=== PATIENT | male | born 1960 | race Caucasian/White ===

== ENCOUNTER 2017-01-08 11:06 | Emergency (ER) | payer OTHER, MEDICAID ==
[~2017-01-08] VITALS: Ht 182.9 cm; Wt 154.2 kg
[2017-01-08] MEDS ORDERED: LATA5OPD OU (11:16)
[2017-01-08] MEDS ORDERED: LISINOPRIL-HCTZ PO (11:16)
[2017-01-08] MEDS ORDERED: LIDOCAINE 1% MDV 20ML VIAL SC ONE (12:45)
[2017-01-08] MEDS ORDERED: ADACEL/BOOSTRIX VACCINE (DIPHTH/PERTUSS/ACELL/TETANUS)0.5ML SYR (90715) IM ONE (12:45)
[2017-01-08 13:35] VITALS: BP 195/82
== END 2017-01-08 13:43 | disposition home or self-care (01) ==
LOC: M ED 12:29
DX: S61.012A Laceration without foreign body of left thumb without damage to nail, initial encounter (principal); W31.89XA Contact with other specified machinery, initial encounter; Y92.89 Other specified places as the place of occurrence of the external cause; Y93.89 Activity, other specified; Y99.0 Civilian activity done for income or pay; I10 Essential (primary) hypertension; Z79.899 Other long term (current) drug therapy

== ENCOUNTER 2017-01-17 11:23 | Emergency (ER) | payer OTHER, MEDICAID ==
[~2017-01-17] VITALS: Ht 182.9 cm; Wt 154.2 kg
[~2017-01-17 11:23] MED LIST: LATA5OPD OU; LISINOPRIL-HCTZ PO
[2017-01-17 11:24] VITALS: BP 169/86
[2017-01-17] MEDS ORDERED: ALEV220C2 PO (11:30)
[2017-01-17] MEDS ORDERED: GLUC1CAP9 PO (11:30)
== END 2017-01-17 12:09 | disposition home or self-care (01) ==
LOC: M ED 11:41
DX: Z48.02 Encounter for removal of sutures (principal); Z79.899 Other long term (current) drug therapy

== ENCOUNTER 2017-08-28 11:01 | Emergency (ER) | payer OTHER, MEDICAID | END 2017-08-28 11:42 | disposition home or self-care (01) | LOC: M ED 11:01 | DX: M54.5 Low back pain (principal); I10 Essential (primary) hypertension; H47.399 Other disorders of optic disc, unspecified eye; Z79.899 Other long term (current) drug therapy | CPT/HCPCS: 99282 ==

== ENCOUNTER 2018-04-11 17:41 | Emergency (ER) | payer OTHER ==
[2018-04-11 18:08] LABS: BASO % 0.3 % (0.0-1.0); EOS # 0.3 10^3/uL (0.0-0.50); EOS % 1.8 % (0.0-3.0); HEMATOCRIT 44.7 % (42.0-52.0); HEMOGLOBIN 14.7 g/dl (13.5-17.5); IMMATURE GRANULOCYTE % 0.5 % (0-3.0); LYMPH # 1.4 10^3/uL (1.5-4.5); LYMPH % 9.9 % (24.0-44.0); MEAN CORPUSCULAR HEMOGLOBIN 28.9 pg (27.0-33.0); MEAN CORPUSCULAR HGB CONC 32.9 g/dl (32.0-36.5); MONO # 1.5 10^3/uL (0.0-0.8); MONO % 10.8 % (0.0-5.0); NEUTROPHILS # 10.9 10^3/uL (1.8-7.7); NEUTROPHILS % 76.7 % (36.0-66.0); PLATELET COUNT, AUTOMATED 259 10^3/uL (150-450); RED BLOOD COUNT 5.08 10^6/uL (4.30-6.10); RED CELL DISTRIBUTION WIDTH 12.9 % (11.5-14.5); WHITE BLOOD COUNT 14.2 10^3/uL (4.0-10.0)
[2018-04-11] MEDS: HYDROMORPHONE HCL 0.5 MG/ 0.5 ML SYRINGE (J1170 PER 1) IV (18:16)
[2018-04-11 18:30] LABS: INR 1.23; PROTHROMBIN TIME 15.7 SECONDS (12.1-14.4)
[2018-04-11 18:32] LABS: D-DIMER QUANT 2837.4 ng/ml (<500)
[2018-04-11 18:38] LABS: ALKALINE PHOSPHATASE 104 U/L (45-117); ALT/SGPT 25 U/L (12-78); ANION GAP 7 MEQ/L (8-16); AST/SGOT 15 U/L (7-37); BILIRUBIN,DIRECT 0.1 MG/DL (0.0-0.2); BILIRUBIN,TOTAL 0.6 MG/DL (0.2-1.0); BLOOD UREA NITROGEN 24 MG/DL (7-18); CALCIUM LEVEL 8.9 MG/DL (8.5-10.1); CARBON DIOXIDE LEVEL 30 MEQ/L (21-32); CHLORIDE LEVEL 100 MEQ/L (98-107); CPK CREATINE PHOSPHOKINASE 115 U/L (39-308); CREATININE FOR GFR 1.21 MG/DL (0.70-1.30); GLOMERULAR FILTRATION RATE > 60.0 (>56); GLUCOSE, FASTING 116 MG/DL (70-100); POTASSIUM SERUM 4.5 MEQ/L (3.5-5.1); SODIUM LEVEL 137 MEQ/L (136-145); TROPONIN I < 0.02 NG/ML (< 0.10)
[2018-04-11 18:43] LABS: MB/CK RELATIVE INDEX 0.86 (< OR =4); NT-PRO BNP 51 PG/ML (<125)
[2018-04-11] MEDS ORDERED: ISOVUE-370 76% 100ML VIAL (Q9967) As Ordered (19:34)
[2018-04-11] MEDS: PERCOCET 5MG/325MG TAB PO (20:28)
[2018-04-11] MEDS: DOXYCYCLINE HYCLATE 100 MG TAB PO (22:15)
[2018-04-11] MEDS: APIXABAN 5 MG TAB (ELIQUIS) PO (22:15)
[2018-04-11] MEDS: OXYCODONE/APAP 5MG/325MG(BULK FOR ED) 1 TABLET PO (22:15)
== END 2018-04-11 22:38 | disposition home or self-care (01) ==
LOC: M ED 17:41
DX: I26.99 Other pulmonary embolism without acute cor pulmonale (principal); I10 Essential (primary) hypertension
CPT/HCPCS: Q9967

== ENCOUNTER 2018-04-20 10:55 | Inpatient (IN) | payer OTHER ==
[2018-04-20 11:45] LABS: BASO # 0.1 10^3/uL (0.0-0.2); BASO % 0.5 % (0.0-1.0); EOS # 0.5 10^3/uL (0.0-0.50); HEMATOCRIT 38.5 % (42.0-52.0); HEMOGLOBIN 12.7 g/dl (13.5-17.5); IMMATURE GRANULOCYTE % 1.5 % (0-3.0); LYMPH # 1.1 10^3/uL (1.5-4.5); LYMPH % 11.5 % (24.0-44.0); MEAN CORPUSCULAR VOLUME 84.8 fl (80.0-96.0); MONO # 0.7 10^3/uL (0.0-0.8); MONO % 7.4 % (0.0-5.0); NEUTROPHILS % 74.1 % (36.0-66.0); PLATELET COUNT, AUTOMATED 351 10^3/uL (150-450); RED BLOOD COUNT 4.54 10^6/uL (4.30-6.10); RED CELL DISTRIBUTION WIDTH 12.5 % (11.5-14.5); WHITE BLOOD COUNT 9.4 10^3/uL (4.0-10.0)
[2018-04-20 12:12] LABS: ALBUMIN/GLOBULIN RATIO 0.75 (1.00-1.93); ALKALINE PHOSPHATASE 93 U/L (45-117); ALT/SGPT 54 U/L (12-78); ANION GAP 9 MEQ/L (8-16); AST/SGOT 24 U/L (7-37); BILIRUBIN,DIRECT < 0.1 MG/DL (0.0-0.2); BILIRUBIN,TOTAL 0.2 MG/DL (0.2-1.0); BLOOD UREA NITROGEN 20 MG/DL (7-18); CALCIUM LEVEL 8.5 MG/DL (8.5-10.1); CARBON DIOXIDE LEVEL 28 MEQ/L (21-32); CHLORIDE LEVEL 105 MEQ/L (98-107); CPK CREATINE PHOSPHOKINASE 115 U/L (39-308); CREATININE FOR GFR 0.94 MG/DL (0.70-1.30); GLOMERULAR FILTRATION RATE > 60.0 (>56); GLUCOSE, FASTING 110 MG/DL (70-100); POTASSIUM SERUM 3.8 MEQ/L (3.5-5.1); SODIUM LEVEL 142 MEQ/L (136-145); TROPONIN I < 0.02 NG/ML (< 0.10)
[2018-04-20 12:17] LABS: CK-MB VALUE MASS 1.5 NG/ML (<3.6); NT-PRO BNP 600 PG/ML (<125)
[2018-04-20] MEDS ORDERED: ISOVUE-370 76% 100ML VIAL (Q9967) As Ordered (12:30)
[2018-04-20 14:07] LABS: LACTIC ACID SEPSIS PROTOCOL 1.4 MMOL/L (0.4-2.0)
[2018-04-20] MEDS ORDERED: BISACODYL 5 MG TAB PO (16:00)
[2018-04-20] MEDS: hydroCHLOROthiazide 25 MG TAB PO (16:04)
[2018-04-20] MEDS: LISINOPRIL 20 MG TAB PO (16:04)
[2018-04-20] MEDS: cefTRIAXone SOD 1 GM in D5W MINI-BAG PLUS 50 ML IV (17:51)
[2018-04-20] MEDS: APIXABAN 5 MG TAB (ELIQUIS) PO (19:58)
[2018-04-20] MEDS: ACETAMINOPHEN TAB 650MG DOSE (2X325MG) PO (23:28)
[2018-04-21 06:03] LABS: HEMATOCRIT 39.1 % (42.0-52.0); HEMOGLOBIN 12.8 g/dl (13.5-17.5); MEAN CORPUSCULAR HGB CONC 32.7 g/dl (32.0-36.5); MEAN CORPUSCULAR VOLUME 85.6 fl (80.0-96.0); PLATELET COUNT, AUTOMATED 330 10^3/uL (150-450); RED BLOOD COUNT 4.57 10^6/uL (4.30-6.10); RED CELL DISTRIBUTION WIDTH 12.7 % (11.5-14.5)
[2018-04-21 06:21] LABS: ANION GAP 6 MEQ/L (8-16); BLOOD UREA NITROGEN 15 MG/DL (7-18); CALCIUM LEVEL 8.7 MG/DL (8.5-10.1); CARBON DIOXIDE LEVEL 32 MEQ/L (21-32); CHLORIDE LEVEL 101 MEQ/L (98-107); CREATININE FOR GFR 0.94 MG/DL (0.70-1.30); FREE T4 1.12 NG/DL (0.76-1.46); GLOMERULAR FILTRATION RATE > 60.0 (>56); GLUCOSE, FASTING 99 MG/DL (70-100); POTASSIUM SERUM 4.2 MEQ/L (3.5-5.1); SODIUM LEVEL 139 MEQ/L (136-145)
[2018-04-21] MEDS: LISINOPRIL 20 MG TAB PO (07:52)
[2018-04-21] MEDS: hydroCHLOROthiazide 25 MG TAB PO (07:52)
[2018-04-21] MEDS: APIXABAN 5 MG TAB (ELIQUIS) PO ×2 (07:52→20:15)
[2018-04-21] MEDS ORDERED: ISOVUE-370 76% 100ML VIAL (Q9967) As Ordered (13:21)
[2018-04-21] MEDS: cefTRIAXone SOD 1 GM in D5W MINI-BAG PLUS 50 ML IV (17:27)
[2018-04-22 06:11] LABS: ANION GAP 6 MEQ/L (8-16); BLOOD UREA NITROGEN 16 MG/DL (7-18); CALCIUM LEVEL 8.8 MG/DL (8.5-10.1); CARBON DIOXIDE LEVEL 34 MEQ/L (21-32); CHLORIDE LEVEL 97 MEQ/L (98-107); CREATININE FOR GFR 1.09 MG/DL (0.70-1.30); GLOMERULAR FILTRATION RATE > 60.0 (>56); GLUCOSE, FASTING 105 MG/DL (70-100); POTASSIUM SERUM 4.1 MEQ/L (3.5-5.1); SODIUM LEVEL 137 MEQ/L (136-145)
[2018-04-22 06:17] LABS: HEMATOCRIT 41.4 % (42.0-52.0); HEMOGLOBIN 13.4 g/dl (13.5-17.5); MEAN CORPUSCULAR HEMOGLOBIN 28.2 pg (27.0-33.0); MEAN CORPUSCULAR HGB CONC 32.4 g/dl (32.0-36.5); MEAN CORPUSCULAR VOLUME 87.2 fl (80.0-96.0); PLATELET COUNT, AUTOMATED 369 10^3/uL (150-450); RED BLOOD COUNT 4.75 10^6/uL (4.30-6.10); RED CELL DISTRIBUTION WIDTH 12.8 % (11.5-14.5); WHITE BLOOD COUNT 9.1 10^3/uL (4.0-10.0)
[2018-04-22 08:18] LABS: C REACTIVE PROTEIN QUANTITATIV 1.73 MG/DL (0.00-0.30)
[2018-04-22] MEDS: APIXABAN 5 MG TAB (ELIQUIS) PO ×2 (08:45→20:11)
[2018-04-22] MEDS: LISINOPRIL 20 MG TAB PO (08:45)
[2018-04-22] MEDS: hydroCHLOROthiazide 25 MG TAB PO (08:45)
[2018-04-22] MEDS: AZITHROMYCIN 250 MG TAB PO (08:45)
[2018-04-22] MEDS: cefTRIAXone SOD 1 GM in D5W MINI-BAG PLUS 50 ML IV (17:52)
[2018-04-23] MEDS: FUROSEMIDE 20 MG/2 ML VIAL (J1940) IV (00:02)
[2018-04-23 06:26] LABS: HEMOGLOBIN 13.3 g/dl (13.5-17.5); MEAN CORPUSCULAR HEMOGLOBIN 27.9 pg (27.0-33.0); MEAN CORPUSCULAR HGB CONC 32.4 g/dl (32.0-36.5); MEAN CORPUSCULAR VOLUME 86.1 fl (80.0-96.0); PLATELET COUNT, AUTOMATED 356 10^3/uL (150-450); RED BLOOD COUNT 4.76 10^6/uL (4.30-6.10); RED CELL DISTRIBUTION WIDTH 12.7 % (11.5-14.5); WHITE BLOOD COUNT 10.7 10^3/uL (4.0-10.0)
[2018-04-23 06:35] LABS: ANION GAP 7 MEQ/L (8-16); BLOOD UREA NITROGEN 27 MG/DL (7-18); CALCIUM LEVEL 8.6 MG/DL (8.5-10.1); CARBON DIOXIDE LEVEL 34 MEQ/L (21-32); CHLORIDE LEVEL 99 MEQ/L (98-107); CREATININE FOR GFR 1.41 MG/DL (0.70-1.30); GLUCOSE, FASTING 105 MG/DL (70-100); POTASSIUM SERUM 4.1 MEQ/L (3.5-5.1); SODIUM LEVEL 140 MEQ/L (136-145)
[2018-04-23] MEDS: AZITHROMYCIN 250 MG TAB PO (07:55)
[2018-04-23] MEDS: LISINOPRIL 20 MG TAB PO (07:56)
[2018-04-23] MEDS: APIXABAN 5 MG TAB (ELIQUIS) PO ×2 (07:56→20:10)
[2018-04-23] MEDS: cefTRIAXone SOD 1 GM in D5W MINI-BAG PLUS 50 ML IV (17:52)
[2018-04-24 06:48] LABS: HEMATOCRIT 39.7 % (42.0-52.0); HEMOGLOBIN 13.1 g/dl (13.5-17.5); MEAN CORPUSCULAR HEMOGLOBIN 28.9 pg (27.0-33.0); MEAN CORPUSCULAR VOLUME 87.4 fl (80.0-96.0); PLATELET COUNT, AUTOMATED 315 10^3/uL (150-450); RED BLOOD COUNT 4.54 10^6/uL (4.30-6.10); WHITE BLOOD COUNT 10.2 10^3/uL (4.0-10.0)
[2018-04-24 07:01] LABS: ANION GAP 5 MEQ/L (8-16); BLOOD UREA NITROGEN 37 MG/DL (7-18); CALCIUM LEVEL 8.5 MG/DL (8.5-10.1); CARBON DIOXIDE LEVEL 32 MEQ/L (21-32); CHLORIDE LEVEL 101 MEQ/L (98-107); CREATININE FOR GFR 1.36 MG/DL (0.70-1.30); GLOMERULAR FILTRATION RATE 57.3 (>56); GLUCOSE, FASTING 105 MG/DL (70-100); POTASSIUM SERUM 4.4 MEQ/L (3.5-5.1); SODIUM LEVEL 138 MEQ/L (136-145)
[2018-04-24] MEDS: APIXABAN 5 MG TAB (ELIQUIS) PO ×2 (07:54→21:27)
[2018-04-24] MEDS: LevoFLOXacin 750 MG TABLET PO (07:54)
[2018-04-24] MEDS: hydroCHLOROthiazide 25 MG TAB PO (16:38)
[2018-04-25] MEDS: LevoFLOXacin 750 MG TABLET PO (05:40)
[2018-04-25 06:26] LABS: HEMATOCRIT 39.9 % (42.0-52.0); MEAN CORPUSCULAR HEMOGLOBIN 28.4 pg (27.0-33.0); MEAN CORPUSCULAR HGB CONC 32.6 g/dl (32.0-36.5); MEAN CORPUSCULAR VOLUME 87.3 fl (80.0-96.0); PLATELET COUNT, AUTOMATED 342 10^3/uL (150-450); RED BLOOD COUNT 4.57 10^6/uL (4.30-6.10); WHITE BLOOD COUNT 9.4 10^3/uL (4.0-10.0)
[2018-04-25 06:48] LABS: ANION GAP 4 MEQ/L (8-16); BLOOD UREA NITROGEN 28 MG/DL (7-18); CARBON DIOXIDE LEVEL 34 MEQ/L (21-32); CHLORIDE LEVEL 101 MEQ/L (98-107); CREATININE FOR GFR 1.22 MG/DL (0.70-1.30); GLOMERULAR FILTRATION RATE > 60.0 (>56); GLUCOSE, FASTING 87 MG/DL (70-100); POTASSIUM SERUM 4.3 MEQ/L (3.5-5.1); SODIUM LEVEL 139 MEQ/L (136-145)
[2018-04-25] MEDS: hydroCHLOROthiazide 25 MG TAB PO (08:21)
[2018-04-25] MEDS: APIXABAN 5 MG TAB (ELIQUIS) PO (08:21)
== END 2018-04-25 10:52 | disposition home or self-care (01) | DRG 134 ==
LOC: M ED 10:55 → M ED INP 14:26 → M MSPAV 17:30
DX: I26.99 Other pulmonary embolism without acute cor pulmonale (principal); N17.9 Acute kidney failure, unspecified; J18.9 Pneumonia, unspecified organism; I11.0 Hypertensive heart disease with heart failure; I50.32 Chronic diastolic (congestive) heart failure; I72.2 Aneurysm of renal artery; E66.01 Morbid (severe) obesity due to excess calories; Z68.42 Body mass index [BMI] 45.0-49.9, adult; E07.9 Disorder of thyroid, unspecified; Z79.01 Long term (current) use of anticoagulants; Z87.891 Personal history of nicotine dependence; Z79.899 Other long term (current) drug therapy

== ENCOUNTER 2018-05-23 09:12 | Emergency (ER) | payer OTHER ==
[2018-05-23 09:59] LABS: BASO % 0.5 % (0.0-1.0); EOS # 0.7 10^3/uL (0.0-0.50); HEMATOCRIT 40.9 % (42.0-52.0); HEMOGLOBIN 13.4 g/dl (13.5-17.5); IMMATURE GRANULOCYTE % 0.5 % (0-3.0); LYMPH % 17.9 % (24.0-44.0); MEAN CORPUSCULAR HEMOGLOBIN 28.3 pg (27.0-33.0); MEAN CORPUSCULAR HGB CONC 32.8 g/dl (32.0-36.5); MEAN CORPUSCULAR VOLUME 86.3 fl (80.0-96.0); MONO # 0.5 10^3/uL (0.0-0.8); MONO % 9.1 % (0.0-5.0); NEUTROPHILS # 3.3 10^3/uL (1.8-7.7); PLATELET COUNT, AUTOMATED 218 10^3/uL (150-450); RED BLOOD COUNT 4.74 10^6/uL (4.30-6.10); RED CELL DISTRIBUTION WIDTH 13.9 % (11.5-14.5); WHITE BLOOD COUNT 5.5 10^3/uL (4.0-10.0)
[2018-05-23 10:16] LABS: ALBUMIN 3.7 GM/DL (3.2-5.2); ALKALINE PHOSPHATASE 93 U/L (45-117); ALT/SGPT 26 U/L (12-78); ANION GAP 7 MEQ/L (8-16); AST/SGOT 18 U/L (7-37); BILIRUBIN,DIRECT 0.2 MG/DL (0.0-0.2); BILIRUBIN,TOTAL 0.6 MG/DL (0.2-1.0); BLOOD UREA NITROGEN 16 MG/DL (7-18); CALCIUM LEVEL 8.8 MG/DL (8.5-10.1); CARBON DIOXIDE LEVEL 27 MEQ/L (21-32); CHLORIDE LEVEL 104 MEQ/L (98-107); CPK CREATINE PHOSPHOKINASE 95 U/L (39-308); CREATININE FOR GFR 0.92 MG/DL (0.70-1.30); GLOMERULAR FILTRATION RATE > 60.0 (>56); GLUCOSE, FASTING 92 MG/DL (70-100); MB/CK RELATIVE INDEX 1.16 (< OR =4); NT-PRO BNP 146 PG/ML (<125); POTASSIUM SERUM 4.1 MEQ/L (3.5-5.1); SODIUM LEVEL 138 MEQ/L (136-145); THYROXINE (T4) 9.7 UG/DL (4.5-12.0); TOTAL PROTEIN 7.4 GM/DL (6.4-8.2); TROPONIN I < 0.02 NG/ML (< 0.10)
[2018-05-23] MEDS ORDERED: ISOVUE-370 76% 100ML VIAL (Q9967) As Ordered (11:10)
[2018-05-23 11:12] LABS: ABG BASE EXCESS 0.2 (-2.0-2.0); ABG HCO3 24.8 MEQ/L (22.0-26.0); ABG O2 SATURATION 93.7 % (95.0-99.0); ABG PARTIAL PRESSURE CO2 40.3 mmHg (35.0-45.0); ABG PARTIAL PRESSURE O2 68.2 mmHg (75.0-100.0); ABG STANDARD HCO3 24.5 MEQ/L (22.0-26.0); ABG pH (ARTERIAL) 7.407 UNITS (7.350-7.450)
[2018-05-23] MEDS: ALBUTEROL 90 MCG/ACT 8GM HFA INHALER INH (12:36)
== END 2018-05-23 13:34 | disposition home or self-care (01) ==
LOC: M ED 09:12
DX: R06.00 Dyspnea, unspecified (principal); J90 Pleural effusion, not elsewhere classified; J18.9 Pneumonia, unspecified organism; I50.9 Heart failure, unspecified; I10 Essential (primary) hypertension; Z87.01 Personal history of pneumonia (recurrent); Z79.899 Other long term (current) drug therapy
CPT/HCPCS: Q9967

== ENCOUNTER → 2018-05-26 | Outpatient (REF) | payer OTHER ==
[2018-05-26 12:23] LABS: APPEARANCE, URINE CLEAR (CLEAR); BACTERIA, URINE AUTO NEGATIVE (NEGATIVE); BILIRUBIN, URINE AUTO NEGATIVE (NEGATIVE); BLOOD, URINE BLOOD NEGATIVE (NEGATIVE); COLOR, URINE YELLOW (YELLOW); GLUCOSE, URINE (UA) AUTO NEGATIVE (NEGATIVE); KETONE, URINE AUTO NEGATIVE (NEGATIVE); LEUKOCYTE ESTERASE, URINE AUTO NEGATIVE (NEGATIVE); MUCUS, URINE SMALL (NEGATIVE); NITRITE, URINE AUTO NEGATIVE (NEGATIVE); PROTEIN, URINE AUTO NEGATIVE (NEGATIVE); RBC, URINE AUTO 0 /HPF (0-3); SPECIFIC GRAVITY URINE AUTO 1.016 (1.002-1.035); SQUAMOUS EPITHELIAL CELL UR AU 0 /HPF (0-6); UROBILINOGEN, URINE AUTO 0.2 mg/dL (0.0-2.0); WBC, URINE AUTO 1 /HPF (0-3)
[2018-05-26 12:53] LABS: ESTIMATED AVERAGE GLUCOSE 114 MG/DL (60-110); HEMOGLOBIN A1c 5.6 %
[2018-05-26 13:02] LABS: MALB URINE SIEMENS 20.6 MG/L
[2018-05-26 13:06] LABS: MAU/CREAT RATIO 19.8 MCG/MG (0.0-30.0)
[2018-05-26 21:02] LABS: ANION GAP 8 MEQ/L (8-16); BLOOD UREA NITROGEN 17 MG/DL (7-18); CALCIUM LEVEL 8.6 MG/DL (8.5-10.1); CARBON DIOXIDE LEVEL 29 MEQ/L (21-32); CHLORIDE LEVEL 105 MEQ/L (98-107); GLOMERULAR FILTRATION RATE > 60.0 (>56); GLUCOSE, FASTING 89 MG/DL (70-100); POTASSIUM SERUM 4.9 MEQ/L (3.5-5.1); SODIUM LEVEL 142 MEQ/L (136-145); TRIGLYCERIDES LEVEL 131 MG/DL (<150)
[2018-05-26 21:03] LABS: CHOLESTEROL LEVEL 175 MG/DL (<200); CHOLESTEROL RISK RATIO 3.977 (<5); HDL CHOLESTEROL 44 MG/DL (>40); LDL CHOLESTEROL 105 MG/DL (<100); NON-HDL-C 131 MG/DL
== END ==
LOC: M SFHCPLAZ 09:04
DX: R73.09 Other abnormal glucose (principal); I10 Essential (primary) hypertension

== ENCOUNTER → 2018-05-29 | Outpatient (REF) | payer OTHER | LOC: M LAB REF 15:56 | DX: E04.2 Nontoxic multinodular goiter (principal) ==

== ENCOUNTER 2018-06-03 10:11 | Day surgery (SDC) | payer OTHER ==
[~2018-06-03 10:11] MED LIST changes: -LATA5OPD OU; +LIDOCAINE 1% MDV 20ML VIAL XX; -LISINOPRIL-HCTZ PO
[2018-06-03 10:52] LABS: BASO % 0.5 % (0.0-1.0); EOS # 0.4 10^3/uL (0.0-0.50); EOS % 4.9 % (0.0-3.0); HEMATOCRIT 43.5 % (42.0-52.0); HEMOGLOBIN 14.1 g/dl (13.5-17.5); IMMATURE GRANULOCYTE % 0.5 % (0-3.0); LYMPH # 0.9 10^3/uL (1.5-4.5); LYMPH % 12.2 % (24.0-44.0); MEAN CORPUSCULAR HEMOGLOBIN 28.4 pg (27.0-33.0); MEAN CORPUSCULAR HGB CONC 32.4 g/dl (32.0-36.5); MEAN CORPUSCULAR VOLUME 87.7 fl (80.0-96.0); MONO # 0.7 10^3/uL (0.0-0.8); MONO % 8.4 % (0.0-5.0); NEUTROPHILS # 5.7 10^3/uL (1.8-7.7); NEUTROPHILS % 73.5 % (36.0-66.0); PLATELET COUNT, AUTOMATED 257 10^3/uL (150-450); RED BLOOD COUNT 4.96 10^6/uL (4.30-6.10); RED CELL DISTRIBUTION WIDTH 13.8 % (11.5-14.5); WHITE BLOOD COUNT 7.7 10^3/uL (4.0-10.0)
[2018-06-03 11:04] LABS: INR 0.96; PARTIAL THROMBOPLASTIN TIME 29.6 SECONDS (25.4-37.6); PROTHROMBIN TIME 12.9 SECONDS (12.1-14.4)
[2018-06-03 11:19] LABS: ALBUMIN 3.6 GM/DL (3.2-5.2); ALKALINE PHOSPHATASE 97 U/L (45-117); ALT/SGPT 29 U/L (12-78); ANION GAP 7 MEQ/L (8-16); AST/SGOT 19 U/L (7-37); BILIRUBIN,TOTAL 0.4 MG/DL (0.2-1.0); BLOOD UREA NITROGEN 15 MG/DL (7-18); CALCIUM LEVEL 8.5 MG/DL (8.5-10.1); CARBON DIOXIDE LEVEL 30 MEQ/L (21-32); CHLORIDE LEVEL 105 MEQ/L (98-107); CREATININE FOR GFR 0.89 MG/DL (0.70-1.30); GLOMERULAR FILTRATION RATE > 60.0 (>56); GLUCOSE, FASTING 96 MG/DL (70-100); LDH LACTATE DEHYDROGENASE 158 U/L (87-241); POTASSIUM SERUM 4.2 MEQ/L (3.5-5.1); SODIUM LEVEL 142 MEQ/L (136-145); TOTAL PROTEIN 7.6 GM/DL (6.4-8.2)
[2018-06-03 11:46] LABS: PH BODY FLUID 7.509 UNITS (NOT ESTABLISHED); SOURCE, BODY FLUID pH PLEURAL
[2018-06-03 11:52] LABS: BF MONONUCLEAR CELL % 82.7 % (0-0); BF POLYMORPHONUCLEAR CELL % 17.3 % (0-0); RBC BODY FLUID 46 10^3/uL (<2); WBC BODY FLUID 1724 /uL (0-10)
[2018-06-03 11:53] LABS: APPEARANCE, BODY FLUID CLOUDY (CLEAR); BF DIFF IF INDICATED? YES (NO); PLEURAL FL COLOR RED (COLORLESS); SOURCE, BODY FLUID PLEURAL
[2018-06-03 12:51] LABS: AMYLASE, BODY FLUID 24 U/L (NOT ESTABLISHED); CHOLESTEROL, BODY FLUID 83 MG/DL (NOT ESTABLISHED); LDH, BODY FLUID 253 U/L (NOT ESTABLISHED); SOURCE, BODY FLUID ALBUMIN PLEURAL; SOURCE, BODY FLUID AMYLASE PLEURAL; SOURCE, BODY FLUID CHOL PLEURAL; SOURCE, BODY FLUID GLUCOSE PLEURAL; SOURCE, BODY FLUID LDH PLEURAL; SOURCE, BODY FLUID TOT PROTEIN PLEURAL; SOURCE, BODY FLUID TRIG PLEURAL; TOTAL PROTEIN, BODY FLUID 4.3 G/DL (NOT ESTABLISHED); TRIGLYCERIDE, BODY FLUID 29 MG/DL (NOT ESTABLISHED)
== END 2018-06-03 11:55 | disposition home or self-care (01) ==
LOC: M SDC 10:11
DX: J90 Pleural effusion, not elsewhere classified (principal)
CPT/HCPCS: 32555

== ENCOUNTER → 2018-06-10 | Outpatient (CLI) | payer OTHER | LOC: M SMT 10:11 | DX: J90 Pleural effusion, not elsewhere classified (principal) | CPT/HCPCS: 71046 ==

== ENCOUNTER → 2018-06-29 | Outpatient (CLI) | payer OTHER | LOC: M SLEEP 19:43 | DX: G47.33 Obstructive sleep apnea (adult) (pediatric) (principal) | CPT/HCPCS: 95811 ==

== ENCOUNTER → 2018-07-02 | Outpatient (CLI) | payer OTHER ==
[2018-07-04 15:23] LABS: ANTINUCLEAR ANTIBODIES DIRECT Negative (Negative)
== END ==
LOC: M SMT 14:17
DX: J90 Pleural effusion, not elsewhere classified (principal); I10 Essential (primary) hypertension
CPT/HCPCS: 36415

== ENCOUNTER → 2018-07-03 | Outpatient (REF) | payer OTHER ==
[2018-07-03 16:06] LABS: NT-PRO BNP 33 PG/ML (<125)
[2018-07-03 16:06] LABS: C REACTIVE PROTEIN QUANTITATIV 0.64 MG/DL (0.00-0.30)
[2018-07-03 16:31] LABS: ERYTHROCYTE SEDIMENTATION RATE 6 mm/hr (0-20)
== END ==
LOC: M SFHCPLAZ 14:19
DX: J90 Pleural effusion, not elsewhere classified (principal)

== ENCOUNTER → 2018-07-20 | Outpatient (CLI) | payer OTHER | LOC: M RAD 14:04 | DX: J90 Pleural effusion, not elsewhere classified (principal) ==

== ENCOUNTER → 2018-09-24 | Outpatient (CLI) | payer OTHER ==
[~2018-09-24] MED LIST changes: +ALBU17IN2 INH; +ALEV220C2 PO; +AMLO5TAB6 PO; +BACITAB PO; +CYCL10TA PO; +DOXY-350 PO; +DOXY100C PO; +ELIQ5TAB PO; +GLUC1CAP9 PO; +HYDR25TAB PO; +LATA5OPD OU; +LEVA750T7 PO; -LIDOCAINE 1% MDV 20ML VIAL XX; +LISI20TA3 PO; +LISINOPRIL-HCTZ PO; +LORA-243 PO; +MOVE1TAB PO; +OXYC1TAB23 PO; +TYLE1TAB5 PO
--- NOTE | 2018-09-24 10:27 | REP ---
Clinical: Right renal artery aneurysm Technique: Higginbotham scale and color Doppler evaluation of the kidneys and renal vasculature using curved array transducer. Findings: The kidneys are essentially normal in contour size and echogenicity and reniform shape without hydronephrosis, nephrolithiasis, cystic or renal mass lesion. Right kidney measures 11.2 x 7.5 x 6.1 cm . Left kidney measures 12.1 x 6.7 x 5.6 cm . Bladder is incompletely distended and grossly normal by current evaluation. 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 No significant associated thrombosis is appreciated. Color Doppler evaluation of the renal vasculature demonstrates normal arterial wave patterns, velocities, renal aortic ratios, resistive indices and the acceleration time. No sonographic evidence for renal arterial stenosis noted. Renal vein is patent. Right Kidney: Peak arterial velocity: 169 cm/sec . Renal aortic ratio: 1.5 . Resistive indices: 0.6 - 0.7 . Acceleration times: 0.02 - 0.04 . Left kidney: Peak arterial velocity: 169 cm/sec . Renal aortic ratio: 1.5 . Resistive indices: 0.5 - 0.7 . Acceleration times: 0.01 - 0.02 . Impression: 1. Relatively normal appearance of the bilateral kidneys without hydronephrosis, nephrolithiasis, cystic or mass lesion. 2. No evidence for renal arterial stenosis. 3. 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 Electronically Signed by Brian Ballard MD 09/24/2018 10:19 A
== END ==
LOC: M RAD 08:54
PROVIDERS: ATTEND Surgery Vascular Surgery
DX: I72.2 Aneurysm of renal artery (principal)

== ENCOUNTER → 2018-11-14 | Outpatient (CLI) | payer OTHER ==
[2018-11-14 18:35] LABS: CHOLESTEROL RISK RATIO 3.102 (<5)
[2018-11-14 19:40] LABS: HEMOGLOBIN A1c 5.3 %
== END ==
LOC: M WUC 08:02
PROVIDERS: ATTEND Student in an Organized Health Care Education/Training Program
DX: Z13.6 Encounter for screening for cardiovascular disorders (principal); Z13.1 Encounter for screening for diabetes mellitus

== ENCOUNTER 2019-05-03 09:54 | Emergency (ER) | payer OTHER, BC ==
[~2019-05-03] VITALS: Ht 182.9 cm; Wt 130.2 kg
[~2019-05-03 09:54] MED LIST changes: -ALBU17IN2 INH; +LATA0.0013 OU; -LATA5OPD OU; +LISI20TA20 PO; -LISI20TA3 PO; +PROV108A INH
[2019-05-03 09:55] VITALS: BP 133/83
[2019-05-03] MEDS ORDERED: FURO40TA2 PO (10:01)
[2019-05-03] MEDS ORDERED: BENA10TA9 PO (10:01)
[2019-05-03] MEDS ORDERED: FLUORESCEIN OPHTH 1 MG STRIP OD ONE (11:15)
[2019-05-03] MEDS ORDERED: TETRACAINE 0.5% OPHTH SOLN 4ML OD ONE (11:15)
[2019-05-03] MEDS ORDERED: OCUF0.25 OD (11:25)
== END 2019-05-03 11:33 | disposition home or self-care (01) ==
LOC: M ED 09:54
DX: S05.01XA Injury of conjunctiva and corneal abrasion without foreign body, right eye, initial encounter (principal); Y92.513 Shop (commercial) as the place of occurrence of the external cause; Y99.0 Civilian activity done for income or pay; H40.9 Unspecified glaucoma; I10 Essential (primary) hypertension; Z79.01 Long term (current) use of anticoagulants; Z79.899 Other long term (current) drug therapy

== ENCOUNTER 2019-05-13 10:28 | Emergency (ER) | payer BC, OTHER ==
[~2019-05-13] VITALS: Ht 182.9 cm; Wt 130.4 kg
[~2019-05-13 10:28] MED LIST changes: +BENA10TA9 PO; +FURO40TA2 PO; +OCUF0.25 OD
[2019-05-13] MEDS ORDERED: ELIQ5TAB PO (10:49)
[2019-05-13] MEDS ORDERED: ISOVUE-370 76% 100ML VIAL (Q9967) As Ordered ONE (11:25)
--- NOTE | 2019-05-13 12:23 | REP ---
CT ANGIOGRAM CHEST: TECHNIQUE: Axial contrast enhanced images from the thoracic inlet to the upper abdomen using 100 mL Isovue 370 intravenous contrast material with multiplanar reformations. The study is somewhat limited due to breathing motion. However, I see no evidence of pulmonary embolism. There is very mild cardiomegaly. There is no thoracic aortic aneurysm or dissection. I see no evidence of mediastinal, hilar, or chest wall lymphadenopathy. There is no pleural or pericardial effusion. No infiltrate is seen in either lung. Bilateral adrenal gland thickening is stable. There are degenerative changes of the spine. IMPRESSION: No CT evidence of pulmonary embolism or aortic dissection. No acute infiltrate in either lung. Mild cardiomegaly. Electronically Signed by Tito Higginbotham MD 05/13/2019 05:38 P
[2019-05-13 12:34] VITALS: BP 134/70
== END 2019-05-13 12:41 | disposition home or self-care (01) ==
LOC: M ED 10:28
DX: M54.9 Dorsalgia, unspecified (principal); I10 Essential (primary) hypertension; Z86.711 Personal history of pulmonary embolism; Z79.899 Other long term (current) drug therapy; Z79.01 Long term (current) use of anticoagulants
CPT/HCPCS: 36415; 71275; 80047; 99284; Q9967

== ENCOUNTER → 2019-08-04 | Outpatient (CLI) | payer BC ==
--- NOTE | 2019-08-04 18:54 | REP ---
DUPLEX DOPPLER ULTRASOUND RIGHT RENAL ARTERY WITH ULTRASOUND RIGHT KIDNEY: Real-time sonographic evaluation of the right kidney performed. The right kidney measures 11.2 x 7.1 x 6.8 cm with no mass or hydronephrosis. Saccular aneurysm at the renal hilum at the upper third of the right kidney measures 1.7 x 1.4 cm. There is internal blood flow with no thrombus. There is no significant change compared to the prior ultrasound of 09/24/2018. Unreviewed
== END ==
LOC: M RAD 14:22
PROVIDERS: ATTEND Physician Assistant
DX: I72.2 Aneurysm of renal artery (principal)

== ENCOUNTER → 2019-09-07 | Outpatient (CLI) | payer BC ==
[~2019-09-07] MED LIST changes: -BENA10TA9 PO; +BENA1TAB24 PO
--- NOTE | 2019-09-08 03:18 | REPPI ---
Clinical: History of pleural effusion . Comparison: 07/02/2018 . Technique: PA and lateral. Findings: The mediastinum and cardiac silhouette are normal. The lung lewis are clear and without acute consolidation, effusion, or pneumothorax. The skeletal structures are intact and normal. Impression: 1. No acute cardiopulmonary process. Electronically Signed by Brian Ballard MD 09/08/2019 03:09 A
== END ==
LOC: M PLAIMG 15:04
PROVIDERS: ATTEND Student in an Organized Health Care Education/Training Program
DX: J90 Pleural effusion, not elsewhere classified (principal)

== ENCOUNTER 2019-09-13 11:26 | Emergency (ER) | payer OTHER, BC ==
[~2019-09-13] VITALS: Ht 182.9 cm; Wt 134.1 kg
[2019-09-13] MEDS ORDERED: flonase nasal (11:43)
[2019-09-13] MEDS ORDERED: PIPERACILLIN/TAZOBACTAM SOD 3.375 GM in D5W MINI-BAG PLUS 50 ML IV ONE (12:45)
[2019-09-13] MEDS ORDERED: ACETAMINOPHEN 325 MG TAB PO ONE (13:00)
--- NOTE | 2019-09-13 14:02 | REP ---
LUMBAR SPINE SERIES: Seven views. HISTORY: Injury in a fall. FINDINGS: Lumbar vertebral body heights are preserved. No fracture or collapse is seen. Alignment is normal. There are degenerative disc changes in the upper lumbar spine and to a lesser extent at L3-4. There is osteoarthritic facet hypertrophy bilaterally at L4-5 and L5-S1 moderate in degree. There are sclerotic changes in these facets as well. There is sclerotic degenerative change at the SI joints bilaterally. Pedicles and posterior elements are intact. Psoas margins are symmetric. IMPRESSION: Degenerative spondylosis changes with facet osteoarthropathy at L4-5 and L5-S1 bilaterally. No fracture seen. Electronically Signed by Roe John MD 09/13/2019 07:48 P
--- NOTE | 2019-09-13 14:04 | REP ---
RIGHT HAND SERIES: Four views. HISTORY: Injury in a fall. FINDINGS: Four views of the right hand demonstrate advanced osteoarthritis with fragmented spurring at the 1st carpometacarpal articulation. There are is an old ununited ulnar styloid fracture. There is fragmented spurring at the PIP joint of the small finger. Minimal spurring is seen at the PIP joint of the long finger and at the DIP joints of the long and ring fingers. No fractures seen. No carpal fracture is noted. IMPRESSION: No traumatic abnormality noted. Osteoarthritic changes. Electronically Signed by Roe John MD 09/13/2019 07:49 P
--- NOTE | 2019-09-13 14:04 | REP ---
Cervical spine series: Three views. History: Injury in a fall. Findings: Lateral view shows preserved vertebral body heights and normal alignment. No fracture is seen. Discogenic spurring and disc space narrowing are noted at C5-6 and C6-7. AP and open mouth odontoid views are unremarkable. There is mild vascular calcification in the distribution of the left carotid artery. Impression: No traumatic abnormality noted. Some degenerative disc disease seen at C5-6 and C6-7. CT scanning is more sensitive to fracture than is plain radiography. Electronically Signed by Roe John MD 09/13/2019 07:48 P
--- NOTE | 2019-09-13 14:13 | REP ---
Right wrist series: Four views. History: Injury in a fall. Findings: Four views of the right wrist demonstrate advanced osteoarthritis at the first carpometacarpal articulation with fragmented spurring. There is an accessory ossicle adjacent to the radial styloid. There is an old ununited ulnar styloid fracture fragment. No acute fracture is seen. Impression: No acute fracture noted. Osteoarthritic changes. Electronically Signed by Roe John MD 09/13/2019 07:49 P
[2019-09-13 15:24] VITALS: BP 170/90
== END 2019-09-13 15:28 | disposition home or self-care (01) ==
LOC: M ED 11:26
DX: S39.012A Strain of muscle, fascia and tendon of lower back, initial encounter (principal); S16.1XXA Strain of muscle, fascia and tendon at neck level, initial encounter; S63.601A Unspecified sprain of right thumb, initial encounter; W18.39XA Other fall on same level, initial encounter; Y92.89 Other specified places as the place of occurrence of the external cause; Y99.0 Civilian activity done for income or pay; I10 Essential (primary) hypertension; Z79.01 Long term (current) use of anticoagulants

== ENCOUNTER 2019-10-04 06:59 | Emergency (ER) | payer BC, OTHER ==
[~2019-10-04] VITALS: Ht 182.9 cm; Wt 138.4 kg
[~2019-10-04 06:59] MED LIST changes: +flonase nasal
[2019-10-04] MEDS ORDERED: NS 1,000 ML IV ONE (07:30)
[2019-10-04] MEDS ORDERED: MORPHINE 2 MG/ML 1ML VIAL (J2270) As Ordered ONE (07:36)
[2019-10-04] MEDS ORDERED: ONDANSETRON 4MG/2ML VIAL (J2405) As Ordered ONE (07:36)
[2019-10-04] MEDS ORDERED: ISOVUE-370 76% 100ML VIAL (Q9967) As Ordered ONE (07:38)
[2019-10-04] MEDS: MORPHINE 2 MG/ML 1ML VIAL (J2270) IV PRN ×2 (07:42→10:09)
[2019-10-04 07:45] LABS: BASO % 0.4 % (0.0-1.0); EOS # 0.3 10^3/uL (0.0-0.5); EOS % 5.4 % (0.0-3.0); HEMATOCRIT 44.3 % (42.0-52.0); HEMOGLOBIN 14.4 g/dl (13.5-17.5); LYMPH # 0.9 10^3/uL (1.5-5.0); LYMPH % 16.9 % (24.0-44.0); MEAN CORPUSCULAR HEMOGLOBIN 28.3 pg (27.0-33.0); MEAN CORPUSCULAR HGB CONC 32.5 g/dl (32.0-36.5); MEAN CORPUSCULAR VOLUME 87.2 fl (80.0-96.0); MONO # 0.5 10^3/uL (0.0-0.8); MONO % 8.8 % (0.0-5.0); NEUTROPHILS # 3.6 10^3/uL (1.5-8.5); NEUTROPHILS % 68.3 % (36.0-66.0); PLATELET COUNT, AUTOMATED 234 10^3/uL (150-450); RED BLOOD COUNT 5.08 10^6/uL (4.30-6.10); WHITE BLOOD COUNT 5.2 10^3/uL (4.0-10.0)
[2019-10-04] MEDS ORDERED: ONDANSETRON 4MG/2ML VIAL (J2405) IV ONE (07:45)
--- NOTE | 2019-10-04 07:49 | REP ---
clinical: Chest pain . Comparison: 09/07/2019 . Findings: The mediastinum and cardiac silhouette are stable and within normal limits for portable technique. The lung lewis are clear without acute consolidation, effusion, or pneumothorax. Skeletal structures are intact. Impression: No acute cardiopulmonary process appreciated. Electronically Signed by Brian Ballard MD 10/04/2019 07:40 A
[2019-10-04 08:00] LABS: INR 1.09; PROTHROMBIN TIME 13.9 SECONDS (11.8-14.0)
[2019-10-04 08:01] LABS: PARTIAL THROMBOPLASTIN TIME 33.2 SECONDS (25.0-38.4)
--- NOTE | 2019-10-04 08:12 | REP ---
Head CT without contrast: History: Injury in a fall. Comparison study: No comparison study. CT findings: Bone window settings demonstrate an intact bony calvarium. There is no evidence of skull fracture or incidental bony calvarial lesion. The visualized paranasal sinuses appear clear. No intraorbital abnormality is seen. On soft tissue window setting images; the lateral, third, and fourth ventricles are normal in size and position. Higginbotham-white differentiation pattern is normal above and below the tentorium. There are is no evidence of intracranial hemorrhage. No mass, edema, infarction, or midline shift is seen. No extra-axial fluid collection is appreciated. Impression: Negative noncontrast head CT. Electronically Signed by Roe John MD 10/04/2019 08:11 A
[2019-10-04 08:21] LABS: ALT/SGPT 33 U/L (12-78); BILIRUBIN,DIRECT < 0.1 MG/DL (0.0-0.2); BILIRUBIN,TOTAL 0.6 MG/DL (0.2-1.0); CK-MB VALUE MASS 2.1 NG/ML (<3.6); CPK CREATINE PHOSPHOKINASE 239 U/L (39-308); LIPASE 149 U/L (73-393); MB/CK RELATIVE INDEX 0.88 (< OR =4); TOTAL PROTEIN 7.4 GM/DL (6.4-8.2); TROPONIN I < 0.02 NG/ML (< 0.10)
--- NOTE | 2019-10-04 10:29 | REP ---
REPEAT DICTATION CT PULMONARY ANGIOGRAM: With IV contrast. HISTORY: Chest pain. Injury in a fall. Preliminary report is provided at the time of exam by [facility]. COMPARISON STUDIES: Comparison study May 13, 2019. CONTRAST DOSE: 100 mL of Isovue [address] TECHNIQUE: Helical scanning is acquired and overlapping 1.5 mm and contiguous 3 mm axial images are reformatted. In addition, maximum intensity projection and multiplanar re-formation images are generated in sagittal and coronal imaging projections. CT PULMONARY ANGIOGRAPHIC FINDINGS: Preliminary c python developer radiograph is unremarkable. There is no evidence of mediastinal hematoma. No pneumothorax or hemothorax is appreciated. Thoracic aorta is well opacified with contrast and there is no evidence of aneurysm, traumatic disruption, or dissection. Pulmonary arterial tree is well opacified as well. There is no evidence of pulmonary embolism. No pleural or pericardial effusion is seen. No infiltrate, mass or significant pulmonary nodule is appreciated. There is a small pleural plaque at the right hemidiaphragm and minimal linear discoid atelectasis is seen in the left base. Bone window settings demonstrate a subtle cortical irregularity of the posterior aspect of the right 9th and 10th ribs. This appears to be unchanged from prior study. IMPRESSION: No acute cardiopulmonary disease. Electronically Signed by Roe John MD 10/04/2019 05:24 P
--- NOTE | 2019-10-04 10:31 | REP ---
REPEAT DICTATION CT ABDOMEN AND PELVIS WITH IV BUT WITHOUT ORAL CONTRAST: HISTORY: Injury in a fall. Preliminary report is provided at time of exam by [facility]. CT CONTRAST DOSE: 100 mL of intravenous Isovue 370. Comparison CT study April 21, 2018. CT FINDINGS: The liver and spleen are normal in size homogeneous in texture. No abnormalities noted in the gallbladder or the pancreas. The previously noted right renal artery aneurysm is again seen, 1.8 cm in greatest diameter. Unchanged from a April 21, 2018 prior study. Kidneys enhance symmetrically and are morphologically intact otherwise. No retroperitoneal hematoma is seen. There are dystrophic calcifications in the prostate. Left colonic diverticulosis changes are noted. Bone window settings show no traumatic bony abnormality. IMPRESSION: Stable right renal artery aneurysm. No traumatic intra-abdominal abnormality noted. Left colonic diverticulosis. Electronically Signed by Roe John MD 10/04/2019 05:24 P
[2019-10-04 13:49] LABS: CK-MB VALUE MASS 1.4 NG/ML (<3.6); CPK CREATINE PHOSPHOKINASE 132 U/L (39-308); MB/CK RELATIVE INDEX 1.06 (< OR =4); TROPONIN I < 0.02 NG/ML (< 0.10)
[2019-10-04 14:26] VITALS: BP 143/79
--- NOTE | 2019-10-04 19:35 | ECGEPIP ---
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
--- NOTE | 2019-10-04 19:48 | ECGEPIP ---
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
== END 2019-10-04 14:39 | disposition home or self-care (01) ==
LOC: M ED 06:59
DX: R07.9 Chest pain, unspecified (principal); I10 Essential (primary) hypertension; Z86.711 Personal history of pulmonary embolism; Z79.899 Other long term (current) drug therapy; Z79.01 Long term (current) use of anticoagulants
CPT/HCPCS: 70450; 71045; 71275; 74177; 80047; 80076; 82550; 82553; 83690; 85025; 85610; 85730; 93005; 93041; 94760; 96361; 96374; 96375; 96376; 99291; J2270; J2405; Q9967

== ENCOUNTER → 2019-10-06 | Outpatient (REF) | payer BC ==
[2019-10-06 13:05] LABS: HEMATOCRIT 47.1 % (42.0-52.0); MEAN CORPUSCULAR HEMOGLOBIN 28.2 pg (27.0-33.0); MEAN CORPUSCULAR HGB CONC 31.8 g/dl (32.0-36.5); MEAN CORPUSCULAR VOLUME 88.7 fl (80.0-96.0); PLATELET COUNT, AUTOMATED 270 10^3/uL (150-450); RED BLOOD COUNT 5.31 10^6/uL (4.30-6.10); WHITE BLOOD COUNT 5.3 10^3/uL (4.0-10.0)
[2019-10-06 13:16] LABS: CHOLESTEROL RISK RATIO 3.105 (<5)
[2019-10-06 13:28] LABS: HEMOGLOBIN A1c 5.4 %
== END ==
LOC: M SFHCPLAZ 09:01
PROVIDERS: ATTEND Family Medicine
DX: I21.29 ST elevation (STEMI) myocardial infarction involving other sites (principal)

== ENCOUNTER → 2020-06-01 | Outpatient (CLI) | payer BC ==
[~2020-06-01] MED LIST changes: +AMLO1TAB24 PO; -AMLO5TAB6 PO; +CYCL-707 PO; -CYCL10TA PO
--- NOTE | 2020-06-05 14:36 | REP ---
RENAL ULTRASOUND WITH DUPLEX DOPPLER RENAL ARTERY EVALUATION HISTORY: Right renal artery aneurysm. TECHNIQUE: Real-time sonographic evaluation of the kidneys is performed. FINDINGS: The kidneys are normal in size and echotexture, right kidney measuring 12.5 x 5.8 x 6.3 cm and the left kidney 4.2 x 5.6 x 6.1 cm. There is no hydronephrosis bilaterally. No definite renal mass or calculus is seen. Urinary bladder is mildly distended and not well evaluated. Real-time ultrasound evaluation and duplex Doppler interrogation of the renal arteries is performed bilaterally. Right renal artery aneurysm has not significantly changed, measuring approximately 1.8 cm in maximum diameter. There is no compelling duplex Doppler sonographic evidence of significant renal artery stenosis bilaterally. Peak systolic velocity of the abdominal aorta at the level of the renal arteries is 87.5 cm/s. Peak systolic velocity of the main right renal artery 118.3 cm/s. Renal to aortic ratio is 1.4. Resistive indices are measured in the upper, middle, and lower thirds of the right kidney and range between 0.52 and 0.67. Acceleration times range between 0.020 and 0.039. Peak systolic velocity of the main left renal artery is 90.2 cm/s, renal to aortic ratio 1.0. Resistive indices left kidney range between 0.53 and 0.63. Acceleration times range between 0.023 and 0.037. IMPRESSION: Stable right renal artery aneurysm with maximum diameter approximately 1.8 cm. No compelling duplex Doppler sonographic evidence of significant renal artery stenosis bilaterally. MTDD
== END ==
LOC: M RAD 08:56
PROVIDERS: ATTEND Physician Assistant
DX: I72.2 Aneurysm of renal artery (principal)

== ENCOUNTER 2020-09-12 19:10 | Emergency (ER) | payer BC, OTHER ==
[~2020-09-12] VITALS: Ht 182.9 cm; Wt 147.8 kg
[~2020-09-12 19:10] MED LIST changes: +HYDR-3490 PO; -HYDR25TAB PO
--- OUTSIDE RECORDS SUMMARY | 2020-09-12 19:20 | CCD ---
Author Author [facility] Organization [facility] Address Unknown Phone Unavailable Care Team Providers Care Medical Record Librarians Teacher Name Role Phone Roderick, Francisco Unavailable PROBLEMS Type Condition ICD9-CM Code [id number] Code Onset Dates Condition S tatus SNOMED Code Notes Problem PE (pulmonary thromboembolism) I26.99 Active 2 40653602 Problem Essential hypertension I10 Active 68348071 Problem Thyroid nodule E04.1 Active 551769521 Problem Renal artery aneurysm I72.2 Active 01013202 Problem Obstructive sleep apnea (adult) (pediatric) G47.33 Active 58084357 Problem Seasonal allergies J30.2 Active 787200814 Problem Grade I diastolic dysfunction I51.9 Active 35 42594 Problem History of pulmonary embolism Z86.711 Active 16 2370664 Problem Morbid (severe) obesity due to excess calories E66 .01 Active 90923042247359 Problem Anticoagulation adequate with anticoagulant therapy Z79.01 Active 276304326 Problem Environmental allergies Z91.09 Active 46239241 7 Problem BMI 40.0-44.9, adult Z68.41 Active 700714002 Problem Other chronic pain G89.29 Active 56652375 Problem Septal myocardial infarction I21.29 Active 222 13388 Problem HTN, goal below 140/90 I10 Active 34506875 ALLERGIES No Known Allergies ENCOUNTERS from 1960 to 2020-09-04 Encounter Location Date Provider Diagnosis [facility] Resident [address] [place] [address] 11 Aug, 2020 Francisco Vaughn Annual physical exam Z00.00 ; HTN, goal below 140/90 I10 ; Anticoagulation adequate with anticoagulant therapy Z79.01 ; History of pulmonary embolism Z86.711 ; Morbid (severe) obesity due to excess calories E66.01 ; Body mass index [BMI] 45.0-49.9, adult Z68.42 ; Renal artery aneurysm I72.2 ; Encounter for screening for malignant neoplasm of rectum Z12.12 ; Encounter for screening for malignant neoplasm of colon Z12.11 and Thyroid nodule E04.1 IMMUNIZATIONS Vaccine Route Administration Date Status Influenza (18 yrs & older) Flublok IM Intramuscular Jun 01, 2019 Administered Influenza (18 yrs & older) Flublok IM Intramuscular May 21 8 Administered Zoster 50mcg/0.5mL (Shingrix) IM Intramuscular November 27, 2018 A dministered Zoster 50mcg/0.5mL (Shingrix) IM Intramuscular Sep 28, 2018 A dministered Pneumococcal Adult 0.5mL (Pneumovax 23) IM Intramuscular Apr Administered SOCIAL HISTORY Tobacco Use: Social History Observation Description Date Details (start date - stop date) Never Smoker Sex Assigned At : Social History Observation Description Sex Assigned At Unknown Education: Question Answer Notes Level of Education: High School Audit Question Answer Notes Total Score: 0 Interpretation: Alcohol Education Language: Question Answer Notes Languages spoken: Malay Faith: Question Answer Notes [facility] Question Answer Notes Total Score: 0 Interpretation: No problems reported Alcohol Screening: Question Answer Notes Did you have a drink containing alcohol in the past year? No Points 0 Interpretation Negative Tobacco Use: Question Answer Notes Are you a: never smoker REASON FOR REFERRAL No Information VITAL SIGNS Weight 333 lbs Aug, Height 72 in Aug, BMI 45.16 kg/m2 Aug, Heart Rate 91 /min Aug, Respiratory Rate 17 /min Aug, Temperature 98.8 degrees Fahrenheit Aug, Oximetry 98 Aug, Blood pressure systolic 130 mm Hg Aug, Blood pressure diastolic 80 mm Hg Aug, MEDICATIONS Medication SIG (Take, Route, Frequency, Duration) Notes Start Da te End Date Status Norvasc 5mg oral orally Daily for 30 Active Benazepril HCl 10 MG 1 tablet Orally Once a day for 30 Active Lasix 40 MG 1 tablet Orally once daily for 30 Active Claritin 10 MG 1 tablet Orally Once a day for 30 Active Eliquis 5 MG 1 tab Orally twice daily for 30 Active PROCEDURES No Information RESULTS No Results REASON FOR VISIT ANNUAL WELLNESS VISIT MEDICAL (GENERAL) HISTORY Type Description Date Medical History Body mass index (BMI) of 45.0-49.9 in ad ult Medical History Body mass index (BMI) of 45.0-49.9 in ad ult Medical History PE, eliquis Medical History Septal infarct 2019 Surgical History umbilical hernia repair Hospitalization History left pleural effusion, hemop tysis, respiratory distress, pulmonary embolism 04/20/2018-04/25/2018 Goals Section No Information Health Concerns No Information MEDICAL EQUIPMENT No Information MENTAL STATUS No Information FUNCTIONAL STATUS No Information ASSESSMENTS Encounter Date Diagnosis Assessment Notes Treatment Notes Treatm ent Clinical Notes Aug, Annual physical exam (ICD-10 - Z00.00) In support of effectively managing multiple medical problems, I personally review and updated the entire past medical, family and social histories today. I performed a comprehensive examination as documented above. Please see the preventative medicine section for the remaining details on age appropriate screening. Aug, HTN, goal below 140/90 (ICD-10 - I10) Pt requesting refill of his benazepril, norvasc. Patient has been stable on this regimen for quite some time. Patient measures BP at home frequently, and reports that it is 120/80. Repeat BP today of 135/80. Pt to continue to monitor at home and to bring log at next visit. Aug, Anticoagulation adequate wit h anticoagulant therapy (ICD-10 - Z79.01) Reports compliance. No episodes of bleeding. Aug, History of pulmonary embolism (ICD-10 - Z86.711) History of unprovoked PE, please see HPI. Continues on anticoagulation. Follows with pulmonology. Aug, Morbid (severe) obesity due to excess calories ( ICD-10 - E66.01) Weight has remained stable since last appointment. Pt continues to report that he is making attempts to improve physical activity. Pt was briefly counseled regarding diet and healthy activity. We will continue to follow patient's weight at future visits. Aug, Body mass index [BMI] 45.0-49.9, adult (ICD-10 - Z68.42) Aug, Renal artery aneurysm (ICD-10 - I72.2) Follows with vascular. Undergoes routine imaging annually for monitoring. No recent changes in size. Aug, Encounter for screening for malignant neoplasm of rectum (ICD-10 - Z12.12) Patient is using cologuard for colorectal cancer screening. Form completed by pt today for faxing. Aug, Encounter for screening for malignant neoplasm of colon (ICD-10 - Z12.11) As above. Aug, Thyroid nodule (ICD-10 - E04.1) Nodule followed by Dr. Wood. Last visit in spring. Benign findings. Annual monitoring with endocrinology. Aug, Other Refills above s ent to patient's pharmacy. PLAN OF TREATMENT Treatment Notes Assessment Notes Clinical Notes Annual physical exam In support of mehran steiner managing multiple medical problems, I personally review and updated the entire past medical, family and social histories today. I performed a comprehensive examination as documented above. Please see the preventative medicine section for the remaining details on age appropriate screening. HTN, goal below 140/90 Pt requesting ref ill of his benazepril, norvasc. Patient has been stable on this regimen for quite some time. Patient measures BP at home frequently, and reports that it is 120/80. Repeat BP today of 135/80. Pt to continue to monitor at home and to bring log at next visit. Anticoagulation adequate with anticoagulant therapy Reports compliance. No episodes of bleeding. History of pulmonary embolism History of unprovoked PE, please see HPI. Continues on anticoagulation. Follows with pulmonology. Morbid (severe) obesity due to excess calories Weight has remained stable since last appointment. Pt continues to report that he is making attempts to improve physical activity. Pt was briefly counseled regarding diet and healthy activity. We will continue to follow patient's weight at future visits. Renal artery aneurysm Follows with ayse zhao. Undergoes routine imaging annually for monitoring. No recent changes in size. Encounter for screening for malignant neoplasm of rectum Patient is using cologuard for colorectal cancer screening. Form completed by pt today for faxing. Encounter for screening for malignant neoplasm of colon As above. Thyroid nodule Nodule followed by Aleja Wood. Last visit in spring. Benign findings. Annual monitoring with endocrinology. Next Appt Details December 2020 Reason:Follow-up of chronic med ical conditions Follow Up:December 2020Follow-up of chronic medical conditions Insurance Providers Payer Name Payer Address Payer Phone Insured Name Patient Relati onship to Insured Coverage Start Date Coverage End Date [facility] [address] [place] [address] LUIS MANUEL SOFIA self
--- OUTSIDE RECORDS SUMMARY | 2020-09-12 19:20 | CCD ---
Author Author [facility] Organization [facility] Address Unknown Phone Unavailable Care Team Providers Care Flooring Mechanic Name Role Phone Roderick Francisco Unavailable PROBLEMS Type Condition ICD9-CM Code AYK74-PV Code Onset Dates Condition S tatus SNOMED Code Notes Problem PE (pulmonary thromboembolism) I26.99 Active 2 13095668 Problem Essential hypertension I10 Active 97036791 Problem Thyroid nodule E04.1 Active 189646010 Problem Renal artery aneurysm I72.2 Active 24465504 Problem Obstructive sleep apnea (adult) (pediatric) G47.33 Active 47376768 Problem Seasonal allergies J30.2 Active 234315177 Problem Grade I diastolic dysfunction I51.9 Active 35 75544 Problem History of pulmonary embolism Z86.711 Active 16 5999512 Problem Morbid (severe) obesity due to excess calories E66 .01 Active 87485752260012 Problem Anticoagulation adequate with anticoagulant therapy Z79.01 Active 298342049 Problem Environmental allergies Z91.09 Active 34416631 7 Problem BMI 40.0-44.9, adult Z68.41 Active 034392890 Problem Other chronic pain G89.29 Active 68738652 Problem Septal myocardial infarction I21.29 Active 222 14310 Problem HTN, goal below 140/90 I10 Active 32372909 ALLERGIES No Known Allergies ENCOUNTERS from 1960 to 2020-09-07 Encounter Location Date Provider Diagnosis [address] [address] Aug, Francisco Vaughn IMMUNIZATIONS Vaccine Route Administration Date Status Influenza [...] Education Language: Question Answer Notes Languages spoken: Estonian Anabaptist: Question Answer Notes [facility] Question Answer Notes Total Score: 0 Interpretation: No problems reported Alcohol Screening: Question Answer Notes Did you have a drink containing alcohol in the past year? No Points 0 Interpretation Negative Tobacco Use: Question Answer Notes Are you a: never smoker REASON FOR REFERRAL No Information VITAL SIGNS No information MEDICATIONS Medication SIG (Take, Route, Frequency, Duration) [...] Information RESULTS No Results REASON FOR VISIT cologuard MEDICAL (GENERAL) HISTORY Type Description Date Medical [...] No Information FUNCTIONAL STATUS No Information ASSESSMENTS No Information PLAN OF TREATMENT No Information Insurance Providers Payer Name Payer Address Payer Phone Insured Name Patient Relati onship to Insured Coverage Start Date Coverage End Date [facility] [address] [facility] [phone] LUIS MANUEL HERRERA self
--- OUTSIDE RECORDS SUMMARY | 2020-09-12 19:20 | CCD ---
Author Author [facility] Organization [facility] Address Unknown Phone Unavailable Care Team Providers Care Bread Room Hand Name Role Phone Fons, M Aida DECISION SUPPORT ANALYST Unavailable Unavailable Fons, M Aida DECISION SUPPORT ANALYST Unavailable Unavailable Fons, M Aida DECISION SUPPORT ANALYST Unavailable Unavailable Fons, M Aida DECISION SUPPORT ANALYST Unavailable Unavailable Fons, M Aida DECISION SUPPORT ANALYST Unavailable Unavailable Fons, M Aida DECISION SUPPORT ANALYST Unavailable Unavailable Fons, M Aida DECISION SUPPORT ANALYST Unavailable Unavailable Fons, M Aida DECISION SUPPORT ANALYST Unavailable Unavailable Fons, M Aida DECISION SUPPORT ANALYST Unavailable Unavailable Fons, M Aida DECISION SUPPORT ANALYST Unavailable Unavailable Fons, M Aida DECISION SUPPORT ANALYST Unavailable Unavailable Fons, M Aida DECISION SUPPORT ANALYST Unavailable Unavailable Fons, M Aida DECISION SUPPORT ANALYST Unavailable Unavailable Fons, M Aida DECISION SUPPORT ANALYST Unavailable Unavailable Fons, M Aida DECISION SUPPORT ANALYST Unavailable Unavailable Fons, M Aida DECISION SUPPORT ANALYST Unavailable Unavailable Fons, M Aida DECISION SUPPORT ANALYST Unavailable Unavailable Fons, M Aida DECISION SUPPORT ANALYST Unavailable Unavailable Fons, M Aida DECISION SUPPORT ANALYST Unavailable Unavailable Fons, M Aida DECISION SUPPORT ANALYST Unavailable Unavailable Fons, M Aida DECISION SUPPORT ANALYST Unavailable Unavailable Fons, M Aida DECISION SUPPORT ANALYST Unavailable Unavailable Fons, M Aida DECISION SUPPORT ANALYST Unavailable Unavailable Fons, M Aida DECISION SUPPORT ANALYST Unavailable Unavailable Fons, M Aida DECISION SUPPORT ANALYST Unavailable Unavailable Fons, M Aida DECISION SUPPORT ANALYST Unavailable Unavailable Fons, M Aida DECISION SUPPORT ANALYST Unavailable Unavailable Fons, M Aida DECISION SUPPORT ANALYST Unavailable Unavailable Fons, M Aida DECISION SUPPORT ANALYST Unavailable Unavailable Fons, M Aida DECISION SUPPORT ANALYST Unavailable Unavailable Fons, M Aida DECISION SUPPORT ANALYST Unavailable Unavailable Fons, M Aida DECISION SUPPORT ANALYST Unavailable Unavailable Fons, M Aida DECISION SUPPORT ANALYST Unavailable Unavailable Fons, M Aida DECISION SUPPORT ANALYST Unavailable Unavailable Fons, M Aida DECISION SUPPORT ANALYST Unavailable Unavailable Fons, M Aida DECISION SUPPORT ANALYST Unavailable Unavailable Fons, M Aida DECISION SUPPORT ANALYST Unavailable Unavailable Fons, M Aida DECISION SUPPORT ANALYST Unavailable Unavailable Fons, M Aida DECISION SUPPORT ANALYST Unavailable Unavailable Fons, M Aida DECISION SUPPORT ANALYST Unavailable Unavailable Fons, M Aida DECISION SUPPORT ANALYST Unavailable Unavailable Fons, M Aida DECISION SUPPORT ANALYST Unavailable Unavailable Fons, M Aida DECISION SUPPORT ANALYST Unavailable Unavailable Fons, M Aida DECISION SUPPORT ANALYST Unavailable Unavailable Fons, M Aida DECISION SUPPORT ANALYST Unavailable Unavailable Fons, M Aida DECISION SUPPORT ANALYST Unavailable Unavailable Fons, M Aida DECISION SUPPORT ANALYST Unavailable Unavailable Fons, M Aida DECISION SUPPORT ANALYST Unavailable Unavailable Fons, M Aida DECISION SUPPORT ANALYST Unavailable Unavailable Fons, M Aida DECISION SUPPORT ANALYST Unavailable Unavailable Fons, M Aida DECISION SUPPORT ANALYST Unavailable Unavailable Fons, M Aida DECISION SUPPORT ANALYST Unavailable Unavailable Fons, M Aida DECISION SUPPORT ANALYST Unavailable Unavailable Fons, M Aida DECISION SUPPORT ANALYST Unavailable Unavailable Vieira, L Farzaneh RPA Unavailable Unavailable Vieira, L Farzaneh RPA Unavailable Unavailable Vieira, L Farzaneh RPA Unavailable Unavailable Vieira, L Farzaneh RPA Unavailable Unavailable Vieira, L Farzaneh RPA Unavailable Unavailable Vieira, L Farzaneh RPA Unavailable Unavailable Vieira, L Farzaneh RPA Unavailable Unavailable Vieira, L Farzaneh RPA Unavailable Unavailable Vieira, L Farzaneh RPA Unavailable Unavailable Vieira, L Farzaneh RPA Unavailable Unavailable Vieira, L Farzaneh RPA Unavailable Unavailable Vieira, L Farzaneh RPA Unavailable Unavailable Vieira, L Farzaneh RPA Unavailable Unavailable Vieira, L Farzaneh RPA Unavailable Unavailable Vieira, L Farzaneh RPA Unavailable Unavailable Vieira, L Farzaneh RPA Unavailable Unavailable Vieira, L Farzaneh RPA Unavailable Unavailable Vieira, L Farzaneh RPA Unavailable Unavailable Vieira, L Farzaneh RPA Unavailable Unavailable Vieira, L Farzaneh RPA Unavailable Unavailable Vieira, L Farzaneh RPA Unavailable Unavailable Vieira, L Farzaneh RPA Unavailable Unavailable Vieira, L Farzaneh RPA Unavailable Unavailable Vieira, L Farzaneh RPA Unavailable Unavailable Vieira, L Farzaneh RPA Unavailable Unavailable Vieira, L Farzaneh RPA Unavailable Unavailable Vieira, L Farzaneh RPA Unavailable Unavailable Vieira, L Farzaneh RPA Unavailable Unavailable Vieira, L Farzaneh RPA Unavailable Unavailable Vieira, L Farzaneh RPA Unavailable Unavailable Vieira, L Farzaneh RPA Unavailable Unavailable Vieira, L Farzaneh RPA Unavailable Unavailable Bobby, N Tre DRY ICE MACHINE OPERATOR Unavailable Unavailable Bobby, N Tre DRY ICE MACHINE OPERATOR Unavailable Unavailable Bobby, N Tre DRY ICE MACHINE OPERATOR Unavailable Unavailable Vansant, N Tre DRY ICE MACHINE OPERATOR Unavailable Unavailable Vansant, N Tre DRY ICE MACHINE OPERATOR Unavailable Unavailable Vansant, N Tre DRY ICE MACHINE OPERATOR Unavailable Unavailable Vansant, N Tre DRY ICE MACHINE OPERATOR Unavailable Unavailable Bobby, N Tre DRY ICE MACHINE OPERATOR Unavailable Unavailable Bobby, N Tre DRY ICE MACHINE OPERATOR Unavailable Unavailable Bobby, N Tre DRY ICE MACHINE OPERATOR Unavailable Unavailable Bobby, N Tre DRY ICE MACHINE OPERATOR Unavailable Unavailable Bobby, N Tre DRY ICE MACHINE OPERATOR Unavailable Unavailable Vansant, N Tre DRY ICE MACHINE OPERATOR Unavailable Unavailable Vansant, N Tre DRY ICE MACHINE OPERATOR Unavailable Unavailable Bobby, N Tre DRY ICE MACHINE OPERATOR Unavailable Unavailable Vansant, N Tre DRY ICE MACHINE OPERATOR Unavailable Unavailable Bobby, N Tre DRY ICE MACHINE OPERATOR Unavailable Unavailable Bobby, N Tre DRY ICE MACHINE OPERATOR Unavailable Unavailable Vansant, N Tre DRY ICE MACHINE OPERATOR Unavailable Unavailable Bobby, N Tre DRY ICE MACHINE OPERATOR Unavailable Unavailable Vansant, N Tre DRY ICE MACHINE OPERATOR Unavailable Unavailable Bobby, N Tre DRY ICE MACHINE OPERATOR Unavailable Unavailable Vansant, N Tre DRY ICE MACHINE OPERATOR Unavailable Unavailable Vansant, N Tre DRY ICE MACHINE OPERATOR Unavailable Unavailable Vansant, N Tre DRY ICE MACHINE OPERATOR Unavailable Unavailable Vansant, N Tre DRY ICE MACHINE OPERATOR Unavailable Unavailable Bobby, N Tre DRY ICE MACHINE OPERATOR Unavailable Unavailable Vansant, N Tre DRY ICE MACHINE OPERATOR Unavailable Unavailable Vansant, N Tre DRY ICE MACHINE OPERATOR Unavailable Unavailable Bobby, N Tre DRY ICE MACHINE OPERATOR Unavailable Unavailable Nichelle-Ponce, B Travis Unavailable Unavailable Nichelle-Ponce, B Travis Unavailable Unavailable Nichelle-Ponce, B Travis Unavailable Unavailable Nichelle-Ponce, B Travis Unavailable Unavailable Nichelle-Ponce, B Travis Unavailable Unavailable Nichelle-Ponce, B Travis Unavailable Unavailable Nichelle-Ponce, B Travis Unavailable Unavailable Nichelle-Ponce, B Travis Unavailable Unavailable Nichelle-Ponce, B Travis Unavailable Unavailable Nichelle-Ponce, B Travis Unavailable Unavailable Nichelle-Ponce, B Travis Unavailable Unavailable Nichelle-Ponce, B Travis Unavailable Unavailable Nichelle-Ponce, B Travis Unavailable Unavailable Nichelle-Ponce, B Travis Unavailable Unavailable Nichelle-Ponce, B Travis Unavailable Unavailable Nichelle-Ponce, B Travis Unavailable Unavailable Nichelle-Ponce, B Travis Unavailable Unavailable Nichelle-Ponce, B Travis Unavailable Unavailable SEARS, A JUDD DO Unavailable Unavailable SEARS, A JUDD DO Unavailable Unavailable SEARS, A JUDD DO Unavailable Unavailable SEARS, A JUDD DO Unavailable Unavailable SEARS, A JUDD DO Unavailable Unavailable SEARS, A JUDD DO Unavailable Unavailable SEARS, A JUDD DO Unavailable Unavailable SEARS, A JUDD DO Unavailable Unavailable SEARS, A JUDD DO Unavailable Unavailable SEARS, A JUDD DO Unavailable Unavailable SEARS, A JUDD DO Unavailable Unavailable SEARS, A JUDD DO Unavailable Unavailable SEARS, A JUDD DO Unavailable Unavailable SEARS, A JUDD DO Unavailable Unavailable SEARS, A JUDD DO Unavailable Unavailable SEARS, A JUDD DO Unavailable Unavailable SEARS, A JUDD DO Unavailable Unavailable SEARS, A JUDD DO Unavailable Unavailable SEARS, A JDUD DO Unavailable Unavailable SEARS, A JUDD DO Unavailable Unavailable SEARS, A JUDD DO Unavailable Unavailable SEARS, A JUDD DO Unavailable Unavailable SEARS, A JUDD DO Unavailable Unavailable SEARS, A JUDD DO Unavailable Unavailable SEARS, A JUDD DO Unavailable Unavailable SEARS, A JUDD DO Unavailable Unavailable SEARS, A JUDD DO Unavailable Unavailable SEARS, A JUDD DO Unavailable Unavailable SEARS, A JUDD DO Unavailable Unavailable SEARS, A JUDD DO Unavailable Unavailable SEARS, A JUDD DO Unavailable Unavailable SEARS, A JUDD DO Unavailable Unavailable SEARS, A JUDD DO Unavailable Unavailable SEARS, A JUDD DO Unavailable Unavailable SEARS, A JUDD DO Unavailable Unavailable SEARS, A JUDD DO Unavailable Unavailable SEARS, A JUDD DO Unavailable Unavailable SEARS, A JUDD DO Unavailable Unavailable SEARS, A JUDD DO Unavailable Unavailable SEARS, A JUDD DO Unavailable Unavailable SEARS, A JUDD DO Unavailable Unavailable SEARS, A JUDD DO Unavailable Unavailable SEARS, A JUDD DO Unavailable Unavailable SEARS, A JUDD DO Unavailable Unavailable SEARS, A JUDD DO Unavailable Unavailable Re-disclosure Warning The records that you are about to access may contain information from federally-assisted alcohol or drug abuse programs. If such information is present, then the following federally mandated warning applies: This information has been disclosed to you from records protected by federal confidentiality rules (42 CFR part 2). The federal rules prohibit you from making any further disclosure of this information unless further disclosure is expressly permitted by the written consent of the person to whom it pertains or as otherwise permitted by 42 CFR part 2. A general authorization for the release of medical or other information is NOT sufficient for this purpose. The Federal rules restrict any use of the information to criminally investigate or prosecute any alcohol or drug abuse patient.The records that you are about to access may contain highly sensitive health information, the redisclosure of which is protected by Article 27-F of the [facility] Public Health law. If you continue you may have access to information: Regarding HIV / AIDS; Provided by facilities licensed or operated by the [facility] Office of Mental Health; or Provided by the [facility] Office for People With Developmental Disabilities. If such information is present, then the following [facility] mandated warning applies: This information has been disclosed to you from confidential records which are protected by state law. State law prohibits you from making any further disclosure of this information without the specific written consent of the person to whom it pertains, or as otherwise permitted by law. Any unauthorized further disclosure in violation of state law may result in a fine or intermediate sentence or both. A general authorization for the release of medical or other information is NOT sufficient authorization for further disc losure. Family History Family Member Name Family Member Gender Family Member Status Date o f Status Description Data Source(s) Unknown Male Problem MEDENT ([facility]) () - AGE 77 Unknown Unknown Problem MEDENT ([facility]) Unknown Unknown Problem [facility] ([facility]) Unknown Unknown Problem [facility] ([facility]) mother Encounters Encounter Providers Location Date Indications Data Source(s ) [place] [address] [facility] [address] 09/07/2020 12:00:00 AM EST eCW1 ([facility]) [place] [address] [facility] [address] 09/04/2020 12:00:00 AM EST eCW1 ([facility]) Outpatient Attender: Tre ANDERSONMALLY-SJP.MALLY 020 12:00:00 AM EST - 08/08/2020 10:12:02 AM EST [facility] [place] [address] [facility] [address] 05/30/2020 12:00:00 AM EDT eCW1 ([facility]) Unknown [address] [facility] [address] 05/26/2020 12:00:00 AM EDT eCW1 ([facility]) Outpatient Attender: Tre ANDERSONMALLY-SJP.MALLY 020 12:00:00 AM EDT - 02/08/2020 02:59:28 PM EDT [facility] Outpatient Attender: JUDD Lam/Gilbert/Silas/Joe 02/01/2020 02:00:00 PM EDT MEDENT ([facility] Res[facility] [address] [place], [place] [id number] 11/15/2019 12:00:00 AM EDT eCW1 ([facility]) [facility] [address] [place], [place] [id number] 11/15/2019 12:00:00 AM EDT eCW1 ([facility]) Outpatient Referrer: Aida ANDERSONMALLY-SJP.MALLY 10/28/2019 12:00:00 AM EST [facility] Outpatient Referrer: Travis Magaña 10/12/2019 01:5 2:00 PM EST [facility] Resident [address] [place] [phone] 10/06/2019 12:00:00 AM EST eCW1 ([facility]) Outpatient Attender: Aida MACK.MALLY-SJP.MALLY 0 01:57:27 PM EST - 10/05/2019 03:34:23 PM EST [address] [phone] 10/05/2019 12:00:00 AM EST eCW1 ([facility]) Outpatient Referrer: Travis Magaña 09/23/2019 02:4 4:00 PM EST [facility] Outpatient Referrer: Travis Magaña 09/22/2019 12:4 8:00 PM EST [facility] Outpatient Referrer: Travis Magaña 09/16/2019 04:0 5:00 PM EST [facility] [address], [facility] [phone] 09/14/2019 12:00:00 AM EST eCW1 ([facility]) [address] [address] 09/10/2019 12:00:00 AM EST eCW1 ([facility]) [facility] [place] [address] [place] [phone] 09/07/2019 12:00:00 AM EST eCW1 ([facility]) [facility] [address] [place] [phone] 09/03/2019 12:00:00 AM EST eCW1 ([facility]) [address] [place] [address] 09/02/2019 12:00:00 AM EST eCW1 ([facility]) Outpatient Attender: Farzaneh Breaux/Gilbert/Silas/Bettina arteaga 08/16/2019 10:15:00 AM EST [facility]ENT ([facility]) Outpatient Referrer: Travis Magaña 08/15/2019 06:4 8:00 PM EST [facility] Outpatient Attender: Tre Rosales NP SJP.MALLY-SJP.MALLY 019 12:00:00 AM EST - 08/10/2019 03:09:43 PM EST [facility] Medications Medication Brand Name Start Date Product Form Dose Route Admi nistrative Instructions Pharmacy Instructions Status Indications Reaction Description Data Source(s) 5 mg 09/04/2020 12:00:00 AM EST tablet 30 TAKE ONE TABLET BY MOUTH EVERY DAY TAKE ONE TABLET BY MOUTH EVERY DAY SOLD: 09/07/2020 [facility] 40 mg 05/31/2020 12:00:00 AM EDT tablet 30 TAKE ONE TABLET BY MOUTH EVERY DAY TAKE ONE TABLET BY MOUTH EVERY DAY SOLD: 06/04/2020 [facility] 40 mg 05/31/2020 12:00:00 AM EDT tablet 30 TAKE ONE TABLET BY MOUTH EVERY DAY TAKE ONE TABLET BY MOUTH EVERY DAY SOLD: 07/08/2020 [facility] 40 mg 05/31/2020 12:00:00 AM EDT tablet 30 TAKE ONE TABLET BY MOUTH EVERY DAY TAKE ONE TABLET BY MOUTH EVERY DAY SOLD: 09/07/2020 [facility] 5 mg 05/31/2020 12:00:00 AM EDT tablet 60 TAKE ONE TABLET BY MOUTH TWICE A DAY TAKE ONE TABLET BY MOUTH TWICE A DAY SOLD: 06/04/2020 [facility] 5 mg 05/31/2020 12:00:00 AM EDT tablet 60 TAKE ONE TABLET BY MOUTH TWICE A DAY TAKE ONE TABLET BY MOUTH TWICE A DAY SOLD: 08/20/2020 [facility] 5 mg 05/31/2020 12:00:00 AM EDT tablet 60 TAKE ONE TABLET BY MOUTH TWICE A DAY TAKE ONE TABLET BY MOUTH TWICE A DAY SOLD: 07/19/2020 [facility] 40 mg 05/31/2020 12:00:00 AM EDT tablet 30 TAKE ONE TABLET BY MOUTH EVERY DAY TAKE ONE TABLET BY MOUTH EVERY DAY SOLD: 08/08/2020 [facility] 5 mg 05/30/2020 12:00:00 AM EDT tablet 30 TAKE ONE TABLET BY MOUTH EVERY DAY TAKE ONE TABLET BY MOUTH EVERY DAY SOLD: 07/08/2020 [facility] 10 mg 05/30/2020 12:00:00 AM EDT tablet 30 TAKE ONE TABLET BY MOUTH EVERY DAY TAKE ONE TABLET BY MOUTH EVERY DAY SOLD: 06/04/2020 [facility] 10 mg 05/30/2020 12:00:00 AM EDT tablet 30 TAKE ONE TABLET BY MOUTH EVERY DAY TAKE ONE TABLET BY MOUTH EVERY DAY SOLD: 09/07/2020 [facility] 10 mg 05/30/2020 12:00:00 AM EDT tablet 30 TAKE ONE TABLET BY MOUTH EVERY DAY TAKE ONE TABLET BY MOUTH EVERY DAY SOLD: 08/08/2020 [facility] 5 mg 05/30/2020 12:00:00 AM EDT tablet 30 TAKE ONE TABLET BY MOUTH EVERY DAY TAKE ONE TABLET BY MOUTH EVERY DAY SOLD: 06/04/2020 [facility] 5 mg 05/30/2020 12:00:00 AM EDT tablet 30 TAKE ONE TABLET BY MOUTH EVERY DAY TAKE ONE TABLET BY MOUTH EVERY DAY SOLD: 08/08/2020 [facility] 10 mg 05/30/2020 12:00:00 AM EDT tablet 30 TAKE ONE TABLET BY MOUTH EVERY DAY TAKE ONE TABLET BY MOUTH EVERY DAY SOLD: 07/08/2020 [facility] 5 mg 05/05/2020 12:00:00 AM EDT tablet 60 TAKE ONE TABLET BY MOUTH TWICE A DAY TAKE ONE TABLET BY MOUTH TWICE A DAY SOLD: 05/08/2020 [facility] 5 mg 05/05/2020 12:00:00 AM EDT tablet 30 TAKE ONE TABLET BY MOUTH EVERY DAY TAKE ONE TABLET BY MOUTH EVERY DAY SOLD: 05/08/2020 [facility] 5 mg 01/12/2020 12:00:00 AM EDT tablet 30 TAKE ONE TABLET BY MOUTH EVERY DAY TAKE ONE TABLET BY MOUTH EVERY DAY SOLD: 01/14/2020 [facility] 5 mg 01/12/2020 12:00:00 AM EDT tablet 30 TAKE ONE TABLET BY MOUTH EVERY DAY TAKE ONE TABLET BY MOUTH EVERY DAY SOLD: 02/11/2020 [facility] 10 mg 01/12/2020 12:00:00 AM EDT tablet 30 TAKE ONE TABLET BY MOUTH EVERY DAY TAKE ONE TABLET BY MOUTH EVERY DAY SOLD: 03/17/2020 [facility] 10 mg 01/12/2020 12:00:00 AM EDT tablet 30 TAKE ONE TABLET BY MOUTH EVERY DAY TAKE ONE TABLET BY MOUTH EVERY DAY SOLD: 01/14/2020 [facility] 5 mg 01/12/2020 12:00:00 AM EDT tablet 30 TAKE ONE TABLET BY MOUTH EVERY DAY TAKE ONE TABLET BY MOUTH EVERY DAY SOLD: 03/17/2020 [facility] 10 mg 01/12/2020 12:00:00 AM EDT tablet 30 TAKE ONE TABLET BY MOUTH EVERY DAY TAKE ONE TABLET BY MOUTH EVERY DAY SOLD: 02/11/2020 [facility] 10 mg 01/12/2020 12:00:00 AM EDT tablet 30 TAKE ONE TABLET BY MOUTH EVERY DAY TAKE ONE TABLET BY MOUTH EVERY DAY SOLD: 04/15/2020 [facility] 5 mg 01/06/2020 12:00:00 AM EDT tablet 60 TAKE ONE TABLET BY MOUTH TWICE A DAY TAKE ONE TABLET BY MOUTH TWICE A DAY SOLD: 03/17/2020 [facility] 5 mg 01/06/2020 12:00:00 AM EDT tablet 60 TAKE ONE TABLET BY MOUTH TWICE A DAY TAKE ONE TABLET BY MOUTH TWICE A DAY SOLD: 01/11/2020 [facility] 5 mg 01/06/2020 12:00:00 AM EDT tablet 60 TAKE ONE TABLET BY MOUTH TWICE A DAY TAKE ONE TABLET BY MOUTH TWICE A DAY SOLD: 02/11/2020 [facility] 40 mg 09/25/2019 12:00:00 AM EST tablet 30 TAKE ONE TABLET BY MOUTH EVERY DAY TAKE ONE TABLET BY MOUTH EVERY DAY SOLD: 10/29/2019 [facility] 40 mg 09/25/2019 12:00:00 AM EST tablet 30 TAKE ONE TABLET BY MOUTH EVERY DAY TAKE ONE TABLET BY MOUTH EVERY DAY SOLD: 09/28/2019 [facility] 40 mg 09/25/2019 12:00:00 AM EST tablet 30 TAKE ONE TABLET BY MOUTH EVERY DAY TAKE ONE TABLET BY MOUTH EVERY DAY SOLD: 11/28/2019 [facility] Flonase Allergy Relief 50 MCG/ACT Flonase Allergy Relief 50 MCG/ACT 09/03/2019 12:00:00 AM EST active 1 spray in each nostril eCW1 ([facility]) Flonase Allergy Relief 50 MCG/ACT Flonase Allergy Relief 50 MCG/ACT 09/03/2019 12:00:00 AM EST active 1 spray in each nostril eCW1 ([facility]) Flonase Allergy Relief 50 MCG/ACT Flonase Allergy Relief 50 MCG/ACT 09/03/2019 12:00:00 AM EST active 1 spray in each nostril eCW1 ([facility]) Flonase Allergy Relief 50 MCG/ACT Flonase Allergy Relief 50 MCG/ACT 09/03/2019 12:00:00 AM EST 1.0 {spray_in_each_nostril} acti ve Flonase Allergy Relief 50 MCG/ACT eCW1 ([facility]) Flonase Allergy Relief 50 MCG/ACT Flonase Allergy Relief 50 MCG/ACT 09/03/2019 12:00:00 AM EST active 1 spray in each nostril eCW1 ([facility]) 10 mg 07/13/2019 12:00:00 AM EST tablet 30 TAKE ONE TABLET BY MOUTH EVERY DAY TAKE ONE TABLET BY MOUTH EVERY DAY SOLD: 07/17/2019 [facility] 10 mg 07/13/2019 12:00:00 AM EST tablet 30 TAKE ONE TABLET BY MOUTH EVERY DAY TAKE ONE TABLET BY MOUTH EVERY DAY SOLD: 07/17/2019 [facility] 10 mg 07/13/2019 12:00:00 AM EST tablet 30 TAKE ONE TABLET BY MOUTH EVERY DAY TAKE ONE TABLET BY MOUTH EVERY DAY SOLD: 08/17/2019 [facility] 10 mg 07/13/2019 12:00:00 AM EST tablet 30 TAKE ONE TABLET BY MOUTH EVERY DAY TAKE ONE TABLET BY MOUTH EVERY DAY SOLD: 10/20/2019 [facility] 10 mg 07/13/2019 12:00:00 AM EST tablet 30 TAKE ONE TABLET BY MOUTH EVERY DAY TAKE ONE TABLET BY MOUTH EVERY DAY SOLD: 09/17/2019 [facility] 10 mg 07/13/2019 12:00:00 AM EST tablet 30 TAKE ONE TABLET BY MOUTH EVERY DAY TAKE ONE TABLET BY MOUTH EVERY DAY SOLD: 10/20/2019 [facility] 10 mg 07/13/2019 12:00:00 AM EST tablet 30 TAKE ONE TABLET BY MOUTH EVERY DAY TAKE ONE TABLET BY MOUTH EVERY DAY SOLD: 11/17/2019 [facility] 10 mg 07/13/2019 12:00:00 AM EST tablet 30 TAKE ONE TABLET BY MOUTH EVERY DAY TAKE ONE TABLET BY MOUTH EVERY DAY SOLD: 11/17/2019 [facility] 5 mg 07/13/2019 12:00:00 AM EST tablet 30 TAKE ONE TABLET BY MOUTH EVERY DAY TAKE ONE TABLET BY MOUTH EVERY DAY SOLD: 08/17/2019 [facility] 5 mg 07/13/2019 12:00:00 AM EST tablet 30 TAKE ONE TABLET BY MOUTH EVERY DAY TAKE ONE TABLET BY MOUTH EVERY DAY SOLD: 07/17/2019 [facility] 5 mg 07/13/2019 12:00:00 AM EST tablet 30 TAKE ONE TABLET BY MOUTH EVERY DAY TAKE ONE TABLET BY MOUTH EVERY DAY SOLD: 12/17/2019 [facility] 5 mg 07/13/2019 12:00:00 AM EST tablet 30 TAKE ONE TABLET BY MOUTH EVERY DAY TAKE ONE TABLET BY MOUTH EVERY DAY SOLD: 11/17/2019 [facility] 10 mg 07/13/2019 12:00:00 AM EST tablet 30 TAKE ONE TABLET BY MOUTH EVERY DAY TAKE ONE TABLET BY MOUTH EVERY DAY SOLD: 12/17/2019 [facility] 10 mg 07/13/2019 12:00:00 AM EST tablet 30 TAKE ONE TABLET BY MOUTH EVERY DAY TAKE ONE TABLET BY MOUTH EVERY DAY SOLD: 09/17/2019 [facility] 10 mg 07/13/2019 12:00:00 AM EST tablet 30 TAKE ONE TABLET BY MOUTH EVERY DAY TAKE ONE TABLET BY MOUTH EVERY DAY SOLD: 08/17/2019 [facility] 5 mg 07/13/2019 12:00:00 AM EST tablet 30 TAKE ONE TABLET BY MOUTH EVERY DAY TAKE ONE TABLET BY MOUTH EVERY DAY SOLD: 09/17/2019 [facility] 10 mg 07/13/2019 12:00:00 AM EST tablet 30 TAKE ONE TABLET BY MOUTH EVERY DAY TAKE ONE TABLET BY MOUTH EVERY DAY SOLD: 12/17/2019 [facility] 5 mg 07/13/2019 12:00:00 AM EST tablet 30 TAKE ONE TABLET BY MOUTH EVERY DAY TAKE ONE TABLET BY MOUTH EVERY DAY SOLD: 10/20/2019 [facility] 5 mg 07/10/2019 12:00:00 AM EST tablet 60 TAKE ONE TABLET BY MOUTH TWICE A DAY TAKE ONE TABLET BY MOUTH TWICE A DAY SOLD: 10/12/2019 [facility] 5 mg 07/10/2019 12:00:00 AM EST tablet 60 TAKE ONE TABLET BY MOUTH TWICE A DAY TAKE ONE TABLET BY MOUTH TWICE A DAY SOLD: 09/10/2019 [facility] 5 mg 07/10/2019 12:00:00 AM EST tablet 60 TAKE ONE TABLET BY MOUTH TWICE A DAY TAKE ONE TABLET BY MOUTH TWICE A DAY SOLD: 12/10/2019 [facility] 5 mg 07/10/2019 12:00:00 AM EST tablet 60 TAKE ONE TABLET BY MOUTH TWICE A DAY TAKE ONE TABLET BY MOUTH TWICE A DAY SOLD: 11/12/2019 [facility] 5 mg 07/10/2019 12:00:00 AM EST tablet 60 TAKE ONE TABLET BY MOUTH TWICE A DAY TAKE ONE TABLET BY MOUTH TWICE A DAY SOLD: 08/10/2019 [facility] 40 mg 03/29/2019 12:00:00 AM EDT tablet 30 TAKE ONE TABLET BY MOUTH EVERY DAY TAKE ONE TABLET BY MOUTH EVERY DAY SOLD: 08/30/2019 [facility] 40 mg 03/29/2019 12:00:00 AM EDT tablet 30 TAKE ONE TABLET BY MOUTH EVERY DAY TAKE ONE TABLET BY MOUTH EVERY DAY SOLD: 08/01/2019 [facility] Insurance Providers Payer name Policy type / Coverage type Policy ID Covered republican ID Covered republican's relationship to karimi Policy Karimi Plan Information [employer] O [id number] [employer] [facility]ENT[facility] [id number] SP [id number] [employer] MEDICAID [id number] [employer] MEDICAID [id number] Leanna [id number] [facility] INSURANCE FUND O [id number] S [id number] [place] 302/307 [id number] SP [id number] [place]/307 [id number] SP [id number] [facility] INSURANCE [facility] [id number] SP [id number] [employer] O [id number] S [id number] [employer] [id number] SP [id number] [facility] [id number] SP [id number] [employer] B [id number] S [id number] [place] 306/806 [id number] SP [id number] [facility] O [id number] S [id number] [place] 306/806 [id number] SP [id number] ANSI-Not a Secondary Insurance [id number] ANSI-Not a Secondary Insurance [id number] ANSI-Not a Secondary Insurance [id number] ANSI-Not a Secondary Insurance [id number] ANSI-Not a Secondary Insurance [id number] ANSI-Not a Secondary Insurance [id number] ANSI-Not a Secondary Insurance [id number] ANSI-Not a Secondary Insurance [id number] [facility] [id number] SP [id number] ANSI-Not a Secondary Insurance [id number] ANSI-Not a Secondary Insurance [id number] ANSI-Not a Secondary Insurance [id number] ANSI-Not a Secondary Insurance [id number] ANSI-Not a Secondary Insurance [id number] ANSI-Not a Secondary Insurance [id number] ANSI-Not a Secondary Insurance [id number] ANSI-Not a Secondary Insurance [id number] ANSI-Not a Secondary Insurance [id number] ANSI-Not a Secondary Insurance [id number] [facility] Medicaid Commercial [id number] Self [id number] ANSI-Not a Secondary Insurance [id number] ANSI-Not a Secondary Insurance [id number] [facility] Medicaid Health Maintenance Organization (HMO) [id number] Self [id number] ANSI-Not a Secondary Insurance [id number] ANSI-Not a Secondary Insurance [id number] ANSI-Not a Secondary Insurance [id number] ANSI-Not a Secondary Insurance [id number] ANSI-Not a Secondary Insurance [id number] STATE INSURANCE FUND [id number] SP [id number] MVP Commercial [id number] Self [id number] MEDICAID [id number] SP [id number] [facility] INSURANCE FUND [id number] SP [id number] [employer] FEDERAL [id number] SP [id number] BCBS/[place] Commercial Self D Guardian P [id number] S [id number] BC [place] FEDERAL [id number] SP [id number] D Guardian P UNAVAILABLE S UNAVAIL ABLE [id number] Problems, Conditions, and Diagnoses Code Display Name Description Problem Type Effective Dates Data Source(s) I10 21632692 HTN, goal below 140/90 Problem 05/30/2020 12 :00:00 AM EDT eCW1 ([facility]ly [facility]) Z79.01 [id number] Anticoagulation adequate with anticoagula nt therapy Problem 05/30/2020 12:00:00 AM EDT eCW1 (Formerly [facility]) Z86.711 [id number] History of pulmonary embolism Problem 05/30/2020 12:00:00 AM EDT eCW1 (Formerly [facility]) I21.29 [id number] Septal myocardial infarction Problem 020 12:00:00 AM EST eCW1 (Formerly [facility]) I21.29 [id number] Septal myocardial infarction Problem 020 12:00:00 AM EST eCW1 (Formerly [facility]) R07.89 Chest pain Chest pain [id number] 10/05/2019 12:00:00 AM ES T [facility] I26.99 Other pulmonary embolism without acute c or pulmonale Other pulmonary embolism without acute c Diagnosis 08/08/2020 09:13:35 AM EST [facility] R07.89 Other chest pain Other chest pain Diagnosis 08/08/2020 09 :13:35 AM EST [facility] I10 Essential (primary) hypertension Essential (primary) h ypertension Diagnosis 08/08/2020 09:13:35 AM EST [facility] I77.810 Thoracic aortic ectasia Thoracic aortic ectasia Diagno sis 08/08/2020 09:13:35 AM EST [facility] I50.32 Chronic diastolic (congestive) heart juana lure Chronic diastolic (congestive) heart juana Diagnosis 08/08/2020 09:13:35 AM EST [facility] Surgeries/Procedures Procedure Description Date Indications Data Source(s) POCT AMB EKG POCT AMB EKG Routine 08/08/2020 10:01 AM EST Hypertension 08/08/2020 03:01:00 PM EST Hypertension [facility] Hypertension Virtual Brief Check In by an MD/QHP 11/15/2019 12:00:0 0 AM EDT eCW1 (Formerly [facility]) Results ID Date Data Source [id number] 10/28/2019 05:19:06 PM EST [facility] Name Value Range Interpretation Code Description Data Ebony rce(s) Supporting Document(s) &PDF [facility] MGJDDk1cDrGAXjCw98/GIDhhKLZhe5MxFBtbQCc1UVxdGMNtC2IgpYxrTQcOAsZVVqmGZLhBKyTyGQJh oRX [file] ICAgICAgICAgICAgICAgICAgICAgICAgICAgICAgIC NzJYPdXQLdIIGqEZKuEGVfCDVcWXXrFUZaFFKcHHBbTFHjEUJwNB1NYOPvZHImVGBoXOYuGCQrGFYaJS AgICAgICAgICAgICAgICAgICAgICAgICAgICAgICAgICAgICAgICAgICAgICAgICAgICAgICAgICAgIC ZpQZOoFTGmUPAaUVBvGWQkMFUuWV2BUHVvPJGsGVQl ICAgICAgICAgICAgICAgICAgICAgICAgICAgICAgICAgICAgICAgICAgICAgICAgICAgICAgICAgICAg UMEqWQKwHNYvVZDfGVInSFVlXYYuMSQyXJEvOSXxQA1MWWDuMYWrQTJrHHOuPPPcULEoHFMqEBDnCZTw ICAgICAgICAgICAgICAgICAgICAgICAgICAgICAgIC XpWXQwPDTtDOLdAKAeDDHaBFAhNQPmOBEaPQMrJHEiIWRcIZYiKLFtBU9LYLAtUMXeHARoVSXhAIIpYD AgICAgICAgICAgICAgICAgICAgICAgICAgICAgICAgICAgICAgICAgICAgICAgICAgICAgICAgICAgIC JiZXHfBVVuYUVuEEJgOAAsAMLvKQGyHP7QLDJkKWMj ICAgICAgICAgICAgICAgICAgICAgICAgICAgICAgICAgICAgICAgICAgICAgICAgICAgICAgICAgICAg JNYrPPTlEBZoIPTaCIFnXQNpERErXDNqYWUiCEHjUUNeBR2YESNzEVYcJCIuQQIjYVWhVLOoELNhBRLv ICAgICAgICAgICAgICAgICAgICAgICAgICAgICAgIC VwBIPmETXnKMObRIDwHFUdJMRcQWEvXKYrBPUuVKYzZIEaDYDyUBMtVMTzOQ9NWOEfTWFzBAOfEFPqFQ AgICAgICAgICAgICAgICAgICAgICAgICAgICAgICAgICAgICAgICAgICAgICAgICAgICAgICAgICAgIC ZoSUSdPKJiJAGbLWUuDHAcUQDzTEXsSGYoTU2OIGQf ICAgICAgICAgICAgICAgICAgICAgICAgICAgICAgICAgICAgICAgICAgICAgICAgICAgICAgICAgICAg WITrBQUsFFElHSWyNHQvTURvHUToJHMtALKjVVHqSMFmNENiKB9ZOHDcDUKzTMOmKIUsVNCwTBGbOKQx ICAgICAgICAgICAgICAgICAgICAgICAgICAgICAgIC IdHCPrDGByEPVsXCEsFFYuHATkLWMyFKJcGLNhJGJzPEWvVNVoLMNvCUReJILwIU0BAX32xSPwr0L0HP UfDK2lykq/Vm6XVZdmesMiiTGcDC7ZPrNuJA2hdq6KGsXmMK6ckf1XFTdYJtSfA5Q3aWSlLHBlWBDZJy AuX68wJNkbIt79JGjvVJCpZwWwOHj2Tm2QYzGyC4ph UOQhNsI0DWYrLsB7DSZtSyAwEFklSV8Hq6NuiNSmKKk+Ue9MBX7bo8XkPHwgMZWuFC1rhu8TKIeKWfMe T4A7gMVrY2N7BTboOt1EDKHgVNCzRLgfSXYYCDpeLZ3VSL6tbvZ0UU9PiYJwYUFnJUKadKFaKXy3K82q sSGgWUhpZD9JPPR+Kayley+Nv7LIASqQGZvVKXoKxRgYC CRLaPeY60tgSNuNUVqZWDzOBTeFh4MOAZuP1OuptDreDttfaUdYYTrFUVIGS4JGOfkqcCqwCGcjDleUX 35uKwlOZ1RCj1QOiUbQQ1qpc9AeEIwPb4HDRPeQq2ZERKwMGJpWAReWVO3DDNtPfYqUWagWSTlWPQjVM D0RTAoZSPoHR5XRxRnAIXpHUuyKQCvSTOxAAEdfq0U BIZnJSMjHDCvVTGlFNDcONIzCIalNBYpHYLrIWumAXAhABQxEA3RUmPaMBNcGZBxSISkEXFsKABvso5D JXWjLSOuSfDzJoGoRXBtOOQeHDalWUXqIEW5WcI8SEUzPLOnYB7VBiRaPLQoRBF3MLdrBOBiEWKinx0S UBAtZUArQBF4PHHgFNLbRUAiLEqlZHJcNHH4Njv3FK MbGCXrGY8GCgWaFVYyJYN9GIAoEQFrLSVdly4CXOHhUJZeTayeGAKxTMSaYPMlYZqcXZAfFFT8UAN7ZR JuMIYhXZ0LXbLmSESkSFdhBWOwKVLaTGUerp7JTYHnTVPlOWB2TbLjXMPlLVJmYFvdSMXhBPQ1IaOxLF IgRXYqXS6AFpCmDGWeXRl2EVdhGDWkVPXmar6QGPAz DZXkXBD8MKRpABMuGZXsWGlwGXGkUKX3InX7JIMxPBGjJC5ARoTjZAFyIEz7LSwcOPVoEQZgvi9MSRNy HTUeDUSyQtOtYYErDOElZRr9qmBodPQwWUn5NW2SZ7YltkEkAvKBOs0Vk232FJSlMLCfNy1IB0zgLv3q INOqTDBMJb2RCGy8YDM6NWGaSPC5YpGwEIBzG9HcGn FhMGYyZGNiNjAyZWY+TAu5JeiaIMMaRfcuJKZ1YGTtSKHwIFJkZyNqY4A3HXQpYf5iSZVLWg1+DQpzdG CywTygIXGLPxA1QxHtDFnyRSEVYm4U Procedure Social History Code Duration Value Status Description Data Source(s ) Smoking 09/04/2020 12:00:00 AM EST Never Smoker completed Never S moker eCW1 (Formerly [facility]) Smoking 09/04/2020 12:00:00 AM EST Never Smoker completed Never S moker eCW1 (Formerly [facility]) Alcohol intake 08/08/2020 12:00:00 AM EST Not Currently completed [facility] Smoking 08/08/2020 12:00:00 AM EST Never smoker completed Never s moker [facility] Smoking 06/12/2020 12:00:00 AM EDT Patient has never smoked co mpleted Patient has never smoked MEDENT ([facility], ) Smoking 05/30/2020 12:00:00 AM EDT Never Smoker completed Never S moker eCW1 (Formerly [facility]) Smoking 11/15/2019 12:00:00 AM EDT Never Smoker completed Never S moker eCW1 (Formerly [facility]) Vital Signs ID Date Data Source UNK Name Value Range Interpretation Code Description Data Source(s) Diastolic blood pressure 80 mm[Hg] 80 mm[Hg] eCW1 ([facility]) Systolic blood pressure 130 mm[Hg] 130 mm[Hg] e CW1 ([facility]) Body temperature 98.8 [degF] 98.8 [degF] eCW1 ( [facility]) Respiratory rate 17 /min 17 /min eCW1 ([facility]) Heart rate 91 /min 91 /min eCW1 ([facility]) Body mass index (BMI) [Ratio] 45.16 kg/m2 45.16 kg/m2 eCW1 ([facility]) Body height 72 [in_i] 72 [in_i] eCW1 ([facility]) Body weight 333 [lb_av] 333 [lb_av] eCW1 ([facility]) Body mass index (BMI) [Ratio] 45.30 kg/m2 45.30 kg/m2 [facility] Body weight 151.501 kg 151.501 kg [facility] Body height 182.9 cm 182.9 cm [facility] Respiratory rate 16 /min 16 /min [facility] Diastolic blood pressure 86 mm[Hg] 86 mm[Hg] [facility] Systolic blood pressure 138 mm[Hg] 138 mm[Hg] [facility] Body weight 155.131 kg 155.131 kg MEDENT ([facility], ) [place] body weight 178 [lb_av] 178 [lb_av] MEDEN T ([facility], ) Body mass index (BMI) [Ratio] 46.4 kg/m2 46.4 k g/m2 MEDENT ([facility], ) Body weight 342.00 [lb_av] 342.00 [lb_av] MEDEN T ([facility], ) Body height 72 [in_i] 72 [in_i] MEDENT ([facility], ) 6'0" Diastolic blood pressure 98 mm[Hg] 98 mm[Hg] MEDENT ([facility], ) Systolic blood pressure 181 mm[Hg] 181 mm[Hg] M EDENT ([facility], ) Diastolic blood pressure 72 mm[Hg] 72 mm[Hg] eCW1 ([facility]) Systolic blood pressure 142 mm[Hg] 142 mm[Hg] e CW1 ([facility]) Body temperature 98.3 [degF] 98.3 [degF] eCW1 ( [facility]) Respiratory rate 19 /min 19 /min eCW1 ([facility]) Heart rate 94 /min 94 /min eCW1 ([facility]) Body mass index (BMI) [Ratio] 45.43 kg/m2 45.43 kg/m2 eCW1 ([facility]) Body height 72 [in_i] 72 [in_i] eCW1 ([facility]) Body weight 335 [lb_av] 335 [lb_av] eCW1 ([facility]) Body weight 320.00 [lb_av] 320.00 [lb_av] MEDEN T ([facility], ) Body height 72 [in_i] 72 [in_i] MEDENT ([facility]) 6'0" Body temperature 99.4 [degF] 99.4 [degF] MEDENT ([facility]) Oxygen saturation in Arterial blood by Pulse oximetry 95 % 95 % [facility] ([facility]) Heart rate 94 /min 94 /min [facility] ([facility]) Diastolic blood pressure 80 mm[Hg] 80 mm[Hg] MEDENT ([facility]) Systolic blood pressure 140 mm[Hg] 140 mm[Hg] M EDENT ([facility], ) Body weight 145.152 kg 145.152 kg [facility] ([facility]) [place] body weight 178 [lb_av] 178 [lb_av] MEDEN T ([facility]) Body mass index (BMI) [Ratio] 43.4 kg/m2 43.4 k g/m2 [facility] ([facility], ) Diastolic blood pressure 80 mm[Hg] 80 mm[Hg] eCW1 ([facility]) Systolic blood pressure 142 mm[Hg] 142 mm[Hg] e CW1 ([facility]) Body temperature 98.8 [degF] 98.8 [degF] eCW1 ( [facility]) Respiratory rate 18 /min 18 /min eCW1 ([facility]) Heart rate 85 /min 85 /min eCW1 ([facility]) Body mass index (BMI) [Ratio] 41.47 kg/m2 41.47 kg/m2 W1 ([facility]) Body height 72 [in_us] 72 [in_us] eCW1 ([facility]) Body weight Measured 305.8 [lb_av] 305.8 [lb_av ] eCW1 ([facility]) Diastolic blood pressure 80 mm[Hg] 80 mm[Hg] eCW1 ([facility]) Systolic blood pressure 134 mm[Hg] 134 mm[Hg] e CW1 ([facility]) Body temperature 98.2 [degF] 98.2 [degF] eCW1 ( [facility]) Respiratory rate 20 /min 20 /min eCW1 ([facility]) Heart rate 105 /min 105 /min eCW1 ([facility]) Body mass index (BMI) [Ratio] 40.22 kg/m2 40.22 kg/m2 eCW1 ([facility]) Body height 72 [in_us] 72 [in_us] eCW1 ([facility]) Body weight Measured 296.6 [lb_av] 296.6 [lb_av ] eCW1 ([facility]) Diastolic blood pressure 70 mm[Hg] 70 mm[Hg] eCW1 ([facility]) Systolic blood pressure 120 mm[Hg] 120 mm[Hg] e CW1 ([facility]) Body temperature 98.2 [degF] 98.2 [degF] eCW1 ( [facility]) Respiratory rate 20 /min 20 /min eCW1 ([facility]) Heart rate 88 /min 88 /min eCW1 ([facility]) Body mass index (BMI) [Ratio] 53.70 kg/m2 53.70 kg/m2 eCW1 ([facility]) Body height 72 [in_us] 72 [in_us] eCW1 ([facility]) Body weight Measured 396 [lb_av] 396 [lb_av] eC W1 ([facility]) Body weight 136.080 kg 136.080 kg ELINA ([facility], ) Body mass index (BMI) [Ratio] 40.7 kg/m2 40.7 k g/m2 ELINA ([facility], ) Body weight 300.00 [lb_av] 300.00 [lb_av] VIVEKEN T ([facility], ) Body height 72 [in_i] 72 [in_i] [facility] ([facility], ) 6'0" Diastolic blood pressure 96 mm[Hg] 96 mm[Hg] [facility] ([facility], ) Systolic blood pressure 142 mm[Hg] 142 mm[Hg] James DALTON ([facility], ) Patient Treatment Plan of Care Planned Activity Planned Date Details Description Data Source (s) Flonase Allergy Relief 50 MCG/ACT 09/03/2019 12:00:00 AM EST eCW1 ([facility])
[2020-09-12 19:38] VITALS: O2SAT 93
[2020-09-12 20:20] LABS: BASO % 0.2 % (0.0-1.0); EOS % 0.2 % (0.0-3.0); HEMOGLOBIN 14.4 g/dl (13.5-17.5); LYMPH # 0.8 10^3/uL (1.5-5.0); LYMPH % 15.1 % (24.0-44.0); MEAN CORPUSCULAR HEMOGLOBIN 27.9 pg (27.0-33.0); MEAN CORPUSCULAR HGB CONC 32.7 g/dl (32.0-36.5); MEAN CORPUSCULAR VOLUME 85.1 fl (80.0-96.0); MONO # 0.5 10^3/uL (0.0-0.8); MONO % 9.5 % (0.0-5.0); NEUTROPHILS # 3.8 10^3/uL (1.5-8.5); NEUTROPHILS % 74.8 % (36.0-66.0); PLATELET COUNT, AUTOMATED 170 10^3/uL (150-450); RED BLOOD COUNT 5.17 10^6/uL (4.30-6.10)
--- OUTSIDE RECORDS SUMMARY | 2020-09-12 20:32 | CCD ---
Author Author [facility] Organization [facility] Address Unknown Phone Unavailable Care Team Providers Care Building Insulation Supervisor Name Role Phone Fons, M Aida PLACEMENT COORDINATOR Unavailable Unavailable Fons, M Aida PLACEMENT COORDINATOR Unavailable Unavailable Fons, M Aida PLACEMENT COORDINATOR Unavailable Unavailable Fons, M Aida PLACEMENT COORDINATOR Unavailable Unavailable Fons, M Aida PLACEMENT COORDINATOR Unavailable Unavailable Fons, M Aida PLACEMENT COORDINATOR Unavailable Unavailable Fons, M Aida PLACEMENT COORDINATOR Unavailable Unavailable Fons, M Aida PLACEMENT COORDINATOR Unavailable Unavailable Fons, M Aida PLACEMENT COORDINATOR Unavailable Unavailable Fons, M Aida PLACEMENT COORDINATOR Unavailable Unavailable Fons, M Aida PLACEMENT COORDINATOR Unavailable Unavailable Fons, M Aida PLACEMENT COORDINATOR Unavailable Unavailable Fons, M Aida PLACEMENT COORDINATOR Unavailable Unavailable Fons, M Aida PLACEMENT COORDINATOR Unavailable Unavailable Fons, M Aida PLACEMENT COORDINATOR Unavailable Unavailable Fons, M Aida PLACEMENT COORDINATOR Unavailable Unavailable Fons, M Aida PLACEMENT COORDINATOR Unavailable Unavailable Fons, M Aida PLACEMENT COORDINATOR Unavailable Unavailable Fons, M Aida PLACEMENT COORDINATOR Unavailable Unavailable Fons, M Aida PLACEMENT COORDINATOR Unavailable Unavailable Fons, M Aida PLACEMENT COORDINATOR Unavailable Unavailable Fons, M Aida PLACEMENT COORDINATOR Unavailable Unavailable Fons, M Aida PLACEMENT COORDINATOR Unavailable Unavailable Fons, M Aida PLACEMENT COORDINATOR Unavailable Unavailable Fons, M Aida PLACEMENT COORDINATOR Unavailable Unavailable Fons, M Aida PLACEMENT COORDINATOR Unavailable Unavailable Fons, M Aida PLACEMENT COORDINATOR Unavailable Unavailable Fons, M Aida PLACEMENT COORDINATOR Unavailable Unavailable Fons, M Aida PLACEMENT COORDINATOR Unavailable Unavailable Fons, M Aida PLACEMENT COORDINATOR Unavailable Unavailable Fons, M Aida PLACEMENT COORDINATOR Unavailable Unavailable Fons, M Aiad PLACEMENT COORDINATOR Unavailable Unavailable Fons, M Aida PLACEMENT COORDINATOR Unavailable Unavailable Fons, M Aida PLACEMENT COORDINATOR Unavailable Unavailable Fons, M Aida PLACEMENT COORDINATOR Unavailable Unavailable Fons, M Aida PLACEMENT COORDINATOR Unavailable Unavailable Fons, M Aida PLACEMENT COORDINATOR Unavailable Unavailable Fons, M Aida PLACEMENT COORDINATOR Unavailable Unavailable Fons, M Aida PLACEMENT COORDINATOR Unavailable Unavailable Fons, M Aida PLACEMENT COORDINATOR Unavailable Unavailable Fons, M Aida PLACEMENT COORDINATOR Unavailable Unavailable Fons, M Aida PLACEMENT COORDINATOR Unavailable Unavailable Fons, M Aida PLACEMENT COORDINATOR Unavailable Unavailable Fons, M Aida PLACEMENT COORDINATOR Unavailable Unavailable Fons, M Aida PLACEMENT COORDINATOR Unavailable Unavailable Fons, M Aida PLACEMENT COORDINATOR Unavailable Unavailable Fons, M Aida PLACEMENT COORDINATOR Unavailable Unavailable Fons, M Aida PLACEMENT COORDINATOR Unavailable Unavailable Fons, M Aida PLACEMENT COORDINATOR Unavailable Unavailable Fons, M Aida PLACEMENT COORDINATOR Unavailable Unavailable Fons, M Aida PLACEMENT COORDINATOR Unavailable Unavailable Fons, M Aida PLACEMENT COORDINATOR Unavailable Unavailable Fons, M Aida PLACEMENT COORDINATOR Unavailable Unavailable Fons, M Aida PLACEMENT COORDINATOR Unavailable Unavailable Vieira, L Farzaneh RPA Unavailable [...] Farzaneh RPA Unavailable Unavailable Bobby, N Tre WATER CHEMIST Unavailable Unavailable Bobby, N Ter WATER CHEMIST Unavailable Unavailable Bobby, N Tre WATER CHEMIST Unavailable Unavailable Elkins, N Tre WATER CHEMIST Unavailable Unavailable Elkins, N Tre WATER CHEMIST Unavailable Unavailable Elkins, N Tre WATER CHEMIST Unavailable Unavailable Elkins, N Tre WATER CHEMIST Unavailable Unavailable Bobby, N Tre WATER CHEMIST Unavailable Unavailable Bobby, N Tre WATER CHEMIST Unavailable Unavailable Bobby, N Tre WATER CHEMIST Unavailable Unavailable Bobby, N Tre WATER CHEMIST Unavailable Unavailable Bobby, N Tre WATER CHEMIST Unavailable Unavailable Elkins, N Tre WATER CHEMIST Unavailable Unavailable Elkins, N Tre WATER CHEMIST Unavailable Unavailable Bobby, N Tre WATER CHEMIST Unavailable Unavailable Elkins, N Tre WATER CHEMIST Unavailable Unavailable Bobby, N Tre WATER CHEMIST Unavailable Unavailable Bobby, N Tre WATER CHEMIST Unavailable Unavailable Elkins, N Tre WATER CHEMIST Unavailable Unavailable Bobby, N Tre WATER CHEMIST Unavailable Unavailable Elkins, N Tre WATER CHEMIST Unavailable Unavailable Bobby, N Tre WATER CHEMIST Unavailable Unavailable Elkins, N Tre WATER CHEMIST Unavailable Unavailable Elkins, N Tre WATER CHEMIST Unavailable Unavailable Elkins, N Tre WATER CHEMIST Unavailable Unavailable Elkins, N Tre WATER CHEMIST Unavailable Unavailable Bobby, N Tre WATER CHEMIST Unavailable Unavailable Elkins, N Tre WATER CHEMIST Unavailable Unavailable Elkins, N Tre WATER CHEMIST Unavailable Unavailable Bobby, N Tre WATER CHEMIST Unavailable Unavailable Nichelle-Ponce, B Travis Unavailable Unavailable [...] is protected by Article 27-F of the [facility] Public Health law. If you continue you may have access to information: Regarding HIV / AIDS; Provided by facilities licensed or operated by the [facility] Office of Mental Health; or Provided by the [facility] Office for People With Developmental Disabilities. If such information is present, then the following [facility] mandated warning applies: This information has been [...] law may result in a fine or mcc sentence or both. A general authorization for [...] Date Indications Data Source(s ) Unknown [address] [facility] [address] 09/07/2020 12:00:00 AM EST eCW1 ([facility]) [place] [address] [facility] [address] 09/04/2020 12:00:00 AM EST eCW1 ([facility]) Outpatient Attender: Tre ANDERSONMALLY-SJP.MALLY 020 12:00:00 AM EST - 08/08/2020 10:12:02 AM EST [facility] Outpatient [address] [facility] [address] 05/30/2020 12:00:00 AM EDT eCW1 ([facility]) Unknown [address] [facility] [address] 05/26/2020 12:00:00 AM EDT eCW1 ([facility]) Outpatient Attender: Tre ANDERSONMALLY-SJP.MALLY 020 12:00:00 AM EDT - 02/08/2020 02:59:28 PM EDT [facility] Outpatient Attender: JUDD Lam/Gilbert/Silas/Joe 02/01/2020 02:00:00 PM EDT MEDENT ([facility] Resident [address] [place], [place] [id number] 11/15/2019 12:00:00 AM EDT eCW1 ([facility]) [facility] Resident [address] [place], [place] [id number] 11/15/2019 12:00:00 AM EDT eCW1 ([facility]) Outpatient Referrer: Aida ANDERSONMALLY-SJP.MALLY 10/28/2019 12:00:00 AM EST [facility] Outpatient Referrer: Travis Magaña 10/12/2019 01:5 2:00 PM EST [facility] Resident [address] [place] [address] 10/06/2019 12:00:00 AM EST eCW1 ([facility]) Outpatient Attender: Aida MACK.MALLY-SJP.MALLY 0 01:57:27 PM EST - 10/05/2019 03:34:23 PM EST [address] [address] 10/05/2019 12:00:00 AM EST eCW1 ([facility]) Outpatient Referrer: Travis Magaña 09/23/2019 02:4 4:00 PM EST [facility] Outpatient Referrer: Travis Magaña 09/22/2019 12:4 8:00 PM EST [facility] Outpatient Referrer: Travis Magaña 09/16/2019 04:0 5:00 PM EST [facility] [address], [facility] [address] 09/14/2019 12:00:00 AM EST eCW1 ([facility]) [address] [address] 09/10/2019 12:00:00 AM EST eCW1 ([facility]) [facility] Resident [address] [place] [address] 09/07/2019 12:00:00 AM EST eCW1 ([facility]) [facility] Resident [address] [place] [address] 09/03/2019 12:00:00 AM EST eCW1 ([facility]) [address] [place] [address] 09/02/2019 12:00:00 AM EST eCW1 ([facility]) Outpatient Attender: Farzaneh Breaux/Gilbert/Silas/Bettina arteaga 08/16/2019 10:15:00 AM EST MEDENT ([facility]) Outpatient Referrer: Travis Magaña 08/15/2019 06:4 8:00 PM EST [facility] Outpatient Attender: Tre Rosales NP SJP.MALLY-SJP.MALLY 019 12:00:00 AM EST - 08/10/2019 03:09:43 PM EST [facility] Medications Medication Brand Name Start Date Product [...] 1 spray in each nostril eCW1 ([facility]) Flonase Allergy Relief 50 MCG/ACT Flonase Allergy Relief 50 MCG/ACT 09/03/2019 12:00:00 AM EST active 1 spray in each nostril eCW1 ([facility]) Flonase Allergy Relief 50 MCG/ACT Flonase Allergy Relief 50 MCG/ACT 09/03/2019 12:00:00 AM EST active 1 spray in each nostril eCW1 ([facility]) Flonase Allergy Relief 50 MCG/ACT Flonase Allergy Relief 50 MCG/ACT 09/03/2019 12:00:00 AM EST 1.0 {spray_in_each_nostril} acti ve Flonase Allergy Relief 50 MCG/ACT eCW1 ([facility]) Flonase Allergy Relief 50 MCG/ACT Flonase Allergy Relief 50 MCG/ACT 09/03/2019 12:00:00 AM EST active 1 spray in each nostril eCW1 ([facility]) 10 mg 07/13/2019 12:00:00 AM EST tablet [...] type / Coverage type Policy ID Covered alliance party ID Covered alliance party's relationship to karimi Policy Karimi [facility] [id number] SP [id number] [employer] [place] O [id number] SP [id number] [employer] MEDICAID [id number] [employer] BCBS MEDICAID [id number] Leanna [id number] [facility] FUND O [id number] S [id number] [place]/307 [id number] SP [id number] [place]/307 [id number] SP [id number] [facility]URANCE [facility] [id number] SP [id number] [employer] O [id number] S [id number] [employer] [id number] SP [id number] [facility] [id number] SP [id number] [employer] BCBS B [id number] S [id number] BC[place] 306/806 [id number] SP [id number] [facility] O [id number] S [id number] [place] 306/806 [id number] SP [id number] ANSI-Not a Secondary Insurance [id number] ANSI-Not a Secondary Insurance [id number] ANSI-Not a Secondary Insurance [id number] ANSI-Not a Secondary Insurance [id number] ANSI-Not a Secondary Insurance [id number] ANSI-Not a Secondary Insurance [id number] ANSI-Not a Secondary Insurance [id number] ANSI-Not a Secondary Insurance [id number] [facility] [id number] SP [id number] ANSI-Not a Secondary Insurance [id number] ANSI-Not a Secondary Insurance [id number] ANSI-Not a Secondary Insurance [id number] ANSI-Not a Secondary Insurance [id number] ANSI-Not a Secondary Insurance [id number] ANSI-Not a Secondary Insurance [id number] ANSI-Not a Secondary Insurance [id number] ANSI-Not a Secondary Insurance [id number] ANSI-Not a Secondary Insurance [id number] ANSI-Not a Secondary Insurance [id number] [facility] Medicaid Commercial [id number] Self [id number] ANSI-Not a Secondary Insurance [id number] ANSI-Not a Secondary Insurance [id number] [facility] Medicaid Health Maintenance Organization (HMO) [id number] Self [id number] ANSI-Not a Secondary Insurance [id number] ANSI-Not a Secondary Insurance [id number] ANSI-Not a Secondary Insurance [id number] ANSI-Not a Secondary Insurance [id number] ANSI-Not a Secondary Insurance [id number] STATE INSURANCE FUND [id number] SP [id number] MVP Commercial [id number] Self [id number] MEDICAID [id number] SP [id number] [facility] INS[facility] FUND [id number] SP [id number] EXCELLUS BCBS FEDERAL [id number] SP [id number] BCBS/[employer] Commercial Self D Guardian P [id number] S [id number] BC [place] FEDERAL [id number] SP [id number] D Guardian P UNAVAILABLE S UNAVAIL ABLE [id number] Problems, Conditions, and Diagnoses Code Display Name Description Problem Type Effective Dates Data Source(s) I10 37495417 HTN, goal below 140/90 Problem 05/30/2020 12 :00:00 AM EDT eCW1 ([facility]) Z79.01 [id number] Anticoagulation adequate with anticoagula nt therapy Problem 05/30/2020 12:00:00 AM EDT eCW1 ([facility]) Z86.711 [id number] History of pulmonary embolism Problem 05/30/2020 12:00:00 AM EDT eCW1 ([facility]) I21.29 [id number] Septal myocardial infarction Problem 020 12:00:00 AM EST eCW1 ([facility]) I21.29 10545137 Septal myocardial infarction Problem 020 12:00:00 AM EST eCW1 ([facility]) R07.89 Chest pain Chest pain [id number] 10/05/2019 12:00:00 AM ES T [facility] I26.99 Other pulmonary embolism without acute c or pulmonale Other pulmonary embolism without acute c Diagnosis 08/08/2020 09:13:35 AM EST [facility] R07.89 Other chest pain Other chest pain Diagnosis 08/08/2020 09 :13:35 AM EST [facility] I10 Essential (primary) hypertension Essential (primary) h ypertension Diagnosis 08/08/2020 09:13:35 AM EST [facility] I77.810 Thoracic aortic ectasia Thoracic aortic ectasia Diagno sis 08/08/2020 09:13:35 AM EST [facility] I50.32 Chronic diastolic (congestive) heart juana lure Chronic diastolic (congestive) heart juana Diagnosis 08/08/2020 09:13:35 AM EST [facility] Surgeries/Procedures Procedure Description Date Indications Data Source(s) POCT AMB EKG POCT AMB EKG Routine 08/08/2020 10:01 AM EST Hypertension 08/08/2020 03:01:00 PM EST Hypertension [facility] Hypertension Virtual Brief Check In by an MD/QHP 11/15/2019 12:00:0 0 AM EDT eCW1 ([facility]) Results ID Date Data Source [id number] 10/28/2019 05:19:06 PM EST [facility] Name Value Range Interpretation Code Description Data Ebony rce(s) Supporting Document(s) &PDF [facility] KHOYIp6vUsWDTuKe62/SQCoiYIHyb9YmYPqzNKj3IPspUSPdU7ZdkAoqKSmOSwKOJpaWPMpPRdUaFILt oRX [file] ICAgICAgICAgICAgICAgICAgICAgICAgICAgICAgIC CgRWEtGZMhFSHzFGWpTSNgTZEeDJPqAZDqUBRiYZSdUKRaOICjEE0HZRHjICLuNMTkHWNzSQLiQKFvBP AgICAgICAgICAgICAgICAgICAgICAgICAgICAgICAgICAgICAgICAgICAgICAgICAgICAgICAgICAgIC YlPJCmRNFhPGVtELXmRJQtDIQiOS5QEFCoBVPbHJLr ICAgICAgICAgICAgICAgICAgICAgICAgICAgICAgICAgICAgICAgICAgICAgICAgICAgICAgICAgICAg MLUwBZAlIIEuSYBiJUGjMXBtZIRpTYHyFACuCTPrYB3AAJDyFFGkWFXiCBYrNPGrEETeLGDlCDRuYAFv ICAgICAgICAgICAgICAgICAgICAgICAgICAgICAgIC NiOTHjQDKzRZUbIRMaDMQoAOZdLEQiXTRhZIFtNWZkLSLnEKEwFOEsLO2ITAZbZYWbYCPpKPYpXNAeEO AgICAgICAgICAgICAgICAgICAgICAgICAgICAgICAgICAgICAgICAgICAgICAgICAgICAgICAgICAgIC NqKQHjUNTuBDJcAFJmXZElRCGuIHHwQU4PWUUtTQHq ICAgICAgICAgICAgICAgICAgICAgICAgICAgICAgICAgICAgICAgICAgICAgICAgICAgICAgICAgICAg URXaWIKdFQXsGOJkATSuOOIcKOZsWMWmHDMmURGxFGDzIG4QYSQgHVWqUJFcWNSvYZSiWWEmHLFqPQCu ICAgICAgICAgICAgICAgICAgICAgICAgICAgICAgIC OaTZDdUQCuXYMiKIUcZOCrCXTcOQQcBMDaZYZcOJDzRVZdUGZqXQCjXATyKX0UMSYdPQDuYCFsXBCeMC AgICAgICAgICAgICAgICAgICAgICAgICAgICAgICAgICAgICAgICAgICAgICAgICAgICAgICAgICAgIC JsGABjKBVcENTdGYSkYZLaOFRpATToARXdND9RHZZe ICAgICAgICAgICAgICAgICAgICAgICAgICAgICAgICAgICAgICAgICAgICAgICAgICAgICAgICAgICAg ECRrPBHoSVUpNTOaSQYjKUAzYRGcXBPsROTvKZKvYHIeOCKpLC0GWYQjQEToXKSnQOEtDILbNWCtAAYl ICAgICAgICAgICAgICAgICAgICAgICAgICAgICAgIC XbZGLvIMVcPFVdRDMzPLDzZPJzNQBlOVTuENRlCGUiJBGwOVJyOFHjEOKkPWYeSL0AUD71vGStc0E0TA WoGV8qxve/Li2TADrzsgXmqPGgIY7PWoGeFI8evg5TYvJfDP8etc1FIZbELqPwN8Y0dHCpHVWtIOCQEv LsF38aHGthOq09CJtuOQQcVtTjEDx6Cr7JZvFoW3ar HMOdOpP8CEKoZlY9UKGgWfTfZNvwAG1Vo9VgnHMfAGh+Re5LVC5yg3PcIErsHCKjYY8prq8SEYyBZyUy A6U4pZEuU8M5QXuePb2TIGIbIMSpIErrEVARGJptZT9DKC3kfpA4DU8ShNMbVWPlMWIznSViWAj0O56c aARsLLumEH4QOFS+Kayley+Kp6NLAFqZAFwCKGcCbFgZD SXNqJjC77gcCGoOINjPWPbLEHrVj8CVVZmT9YkelCovEiwljAkGNOqNXKYMD4DIHniejDznJRcvRdxIH 47nYnoPG6ZBh4CZgFyET9god5NtCOiKq3FFUHqQh5NRLIqCIHsICReOBT4MIZvPiDyKZadJHIyENTmHC C9FXAvRVBrCR0DZcTcJFYgBNexMXIhLVUaHNQqgm9S WAEkRQBpHFRoSCEiIKZgMXGvUWgrCVMsNPKrHTxbVBKrYEHlNG2TAoGuINCuHZFmANCjYBGaCZNdkc6U KAKtHDJbToHuBxZeOBQlZIEaTQobLPBwFDF5EkV7IDZuEECnTT5OLnAqAUOdGPL1KCglHNNhQISnwz9D UNNvUTSyPWR0WZHpIUPaGRYvLTqvXONoLIQ7Dxk4FT QnSSWsJE9ISeHaDDAsQFW2TPCnVPWhJKNasq5ZLQYlAXYsTxdtADUyGDFcXYDeMYluPSAjTGR2SXV9MB KtOKHbCZ6HCsTiYJUtJBlsHRLlTUUuENVcgd2GZSWpDOXePDC3QjJsLXEpIRHvKMxtBOCnYVH0FcYyEP XvAIDoBY5PWmCrXJLeWOr1ERlxZCJoMMXafp1SNFNp KUEdKIM0STXjGRVkPPXvXAvhYLGzDJG2XaK5HJGoJZXnYO0HPsEbHOMkVBn7JRcpHCJsSHDobr8OTFKh YKJbIQUpLoXySQKeMVDdVMf6lzHggCBxMMq9IF5ZI6MjvpHjLaEPTo4Qn483ZCOqQTBnAj3RD2drDz2y RXMaEFMJKb6PLFc1GKG6RZNrOQI9CmTjRTTgJ5OiRs FhMGYyZGNiNjAyZWY+RMw1OqodKNVpUijrWQY1TELmNSXgBDFkOtDtP2I6IWQzWo1iXQEWHo5+DQpzdG FlmEkgIOQHKyK3FeRpIEvvQLLKQh1V Procedure Social History Code Duration Value Status Description Data Source(s ) Smoking 09/04/2020 12:00:00 AM EST Never Smoker completed Never S moker eCW1 ([facility]) Smoking 09/04/2020 12:00:00 AM EST Never Smoker completed Never S moker eCW1 ([facility]) Alcohol intake 08/08/2020 12:00:00 AM EST Not Currently completed [facility] Smoking 08/08/2020 12:00:00 AM EST Never smoker completed Never s moker [facility] Smoking 06/12/2020 12:00:00 AM EDT Patient has never smoked co mpleted Patient has never smoked MEDENT ([facility] ) Smoking 05/30/2020 12:00:00 AM EDT Never Smoker completed Never S moker eCW1 ([facility]) Smoking 11/15/2019 12:00:00 AM EDT Never Smoker completed Never S moker eCW1 ([facility]) Vital Signs ID Date Data Source UNK Name Value Range Interpretation Code Description Data Source(s) Diastolic blood pressure 80 mm[Hg] 80 mm[Hg] eCW1 ([facility]) Systolic blood pressure 130 mm[Hg] 130 mm[Hg] e CW1 ([facility]) Body temperature 98.8 [degF] 98.8 [degF] eCW1 ( [facility]) Respiratory rate 17 /min 17 /min eCW1 ([facility]) Heart rate 91 /min 91 /min eCW1 ([facility]) Body mass index (BMI) [Ratio] 45.16 kg/m2 45.16 kg/m2 eCW1 ([facility]) Body height 72 [in_i] 72 [in_i] eCW1 ([facility]) Body weight 333 [lb_av] 333 [lb_av] eCW1 ([facility]) Body mass index (BMI) [Ratio] 45.30 kg/m2 45.30 kg/m2 [facility] Body weight 151.501 kg 151.501 kg [facility] Body height 182.9 cm 182.9 cm [facility] Respiratory rate 16 /min 16 /min [facility] Diastolic blood pressure 86 mm[Hg] 86 mm[Hg] [facility] Systolic blood pressure 138 mm[Hg] 138 mm[Hg] [facility] Body weight 155.131 kg 155.131 kg MEDENT ([facility], ) [place] body weight 178 [lb_av] 178 [lb_av] MEDEN T ([facility], ) Body mass index (BMI) [Ratio] 46.4 kg/m2 46.4 k g/m2 MEDENT ([facility], ) Body weight 342.00 [lb_av] 342.00 [lb_av] MEDEN T ([facility], ) Body height 72 [in_i] 72 [in_i] MEDENT ([facility], ) 6'0" Diastolic blood pressure 98 mm[Hg] 98 mm[Hg] MEDENT ([facility], ) Systolic blood pressure 181 mm[Hg] 181 mm[Hg] M EDENT ([facility], ) Diastolic blood pressure 72 mm[Hg] 72 mm[Hg] eCW1 ([facility]) Systolic blood pressure 142 mm[Hg] 142 mm[Hg] e CW1 ([facility]) Body temperature 98.3 [degF] 98.3 [degF] eCW1 ( [facility]) Respiratory rate 19 /min 19 /min eCW1 ([facility]) Heart rate 94 /min 94 /min eCW1 ([facility]) Body mass index (BMI) [Ratio] 45.43 kg/m2 45.43 kg/m2 eCW1 ([facility]) Body height 72 [in_i] 72 [in_i] eCW1 ([facility]) Body weight 335 [lb_av] 335 [lb_av] eCW1 ([facility]) Body weight 320.00 [lb_av] 320.00 [lb_av] MEDEN T ([facility], ) Body height 72 [in_i] 72 [in_i] MEDENT ([facility]) 6'0" Body temperature 99.4 [degF] 99.4 [degF] MEDENT ([facility]) Oxygen saturation in Arterial blood by Pulse oximetry 95 % 95 % [facility] ([facility]) Heart rate 94 /min 94 /min [facility] ([facility]) Diastolic blood pressure 80 mm[Hg] 80 mm[Hg] MEDENT ([facility]) Systolic blood pressure 140 mm[Hg] 140 mm[Hg] M EDENT ([facility], ) Body weight 145.152 kg 145.152 kg [facility] ([facility]) [place] body weight 178 [lb_av] 178 [lb_av] MEDEN T ([facility]) Body mass index (BMI) [Ratio] 43.4 kg/m2 43.4 k g/m2 [facility] ([facility], ) Diastolic blood pressure 80 mm[Hg] 80 mm[Hg] eCW1 ([facility]) Systolic blood pressure 142 mm[Hg] 142 mm[Hg] e CW1 ([facility]) Body temperature 98.8 [degF] 98.8 [degF] eCW1 ( [facility]) Respiratory rate 18 /min 18 /min eCW1 ([facility]) Heart rate 85 /min 85 /min eCW1 ([facility]) Body mass index (BMI) [Ratio] 41.47 kg/m2 41.47 kg/m2 W1 ([facility]) Body height 72 [in_us] 72 [in_us] eCW1 ([facility]) Body weight Measured 305.8 [lb_av] 305.8 [lb_av ] eCW1 ([facility]) Diastolic blood pressure 80 mm[Hg] 80 mm[Hg] eCW1 ([facility]) Systolic blood pressure 134 mm[Hg] 134 mm[Hg] e CW1 ([facility]) Body temperature 98.2 [degF] 98.2 [degF] eCW1 ( [facility]) Respiratory rate 20 /min 20 /min eCW1 ([facility]) Heart rate 105 /min 105 /min eCW1 ([facility]) Body mass index (BMI) [Ratio] 40.22 kg/m2 40.22 kg/m2 eCW1 ([facility]) Body height 72 [in_us] 72 [in_us] eCW1 ([facility]) Body weight Measured 296.6 [lb_av] 296.6 [lb_av ] eCW1 ([facility]) Diastolic blood pressure 70 mm[Hg] 70 mm[Hg] eCW1 (Formerly [facility]) Systolic blood pressure 120 mm[Hg] 120 mm[Hg] e CW1 (Formerly [facility]) Body temperature 98.2 [degF] 98.2 [degF] eCW1 ( Formerly [facility]) Respiratory rate 20 /min 20 /min eCW1 ([facility]) Heart rate 88 /min 88 /min eCW1 ([facility]) Body mass index (BMI) [Ratio] 53.70 kg/m2 53.70 kg/m2 eCW1 (Formerly [facility]) Body height 72 [in_us] 72 [in_us] eCW1 ([facility]) Body weight Measured 396 [lb_av] 396 [lb_av] eC W1 (Formerly [facility]) Body weight 136.080 kg 136.080 kg ELINA ([facility], ) Body mass index (BMI) [Ratio] 40.7 kg/m2 40.7 k g/m2 ELINA ([facility], ) Body weight 300.00 [lb_av] 300.00 [lb_av] VIVEKEN T ([facility], ) Body height 72 [in_i] 72 [in_i] [facility] ([facility], ) 6'0" Diastolic blood pressure 96 mm[Hg] 96 mm[Hg] [facility] ([facility], ) Systolic blood pressure 142 mm[Hg] 142 mm[Hg] James DALTON ([facility], ) Patient Treatment Plan of Care Planned Activity Planned Date Details Description Data Source (s) Flonase Allergy Relief 50 MCG/ACT 09/03/2019 12:00:00 AM EST eCW1 (Formerly [facility])
--- NOTE | 2020-09-12 20:42 | REPVR ---
PROCEDURE INFORMATION: Exam: XR Chest, 1 View Exam date and time: 09/12/2020 8:23 PM Age: 59 years old Clinical indication: Cough TECHNIQUE: Imaging protocol: XR of the chest Views: 1 view. COMPARISON: CR PORTABLE CHEST X-RAY 10/04/2019 7:25 AM FINDINGS: Lungs: Unremarkable. No consolidation. Pleural space: Unremarkable. No pleural effusion. No pneumothorax. Heart/Mediastinum: Unremarkable. No cardiomegaly. Bones/joints: Unremarkable. IMPRESSION: No acute findings. Electronically signed by: Andi Armstrong On 09/12/2020 20:41:54 PM
[2020-09-12] MEDS ORDERED: ACETAMINOPHEN TAB 650MG DOSE (2X325MG) PO ONE (20:45)
[2020-09-12 20:47] LABS: BLOOD UREA NITROGEN 18 MG/DL (7-18); CALCIUM LEVEL 8.4 MG/DL (8.8-10.2); CARBON DIOXIDE LEVEL 28 MEQ/L (21-32); CHLORIDE LEVEL 104 MEQ/L (98-107); CK-MB VALUE MASS 1.1 NG/ML (<3.6); CPK CREATINE PHOSPHOKINASE 143 U/L (39-308); CREATININE FOR GFR 0.96 MG/DL (0.70-1.30); GLOMERULAR FILTRATION RATE > 60.0 (>49); GLUCOSE, FASTING 100 MG/DL (70-100); MB/CK RELATIVE INDEX 0.77 (< OR =4); NT-PRO BNP 144 PG/ML (<125); POTASSIUM SERUM 3.7 MEQ/L (3.5-5.1); SODIUM LEVEL 137 MEQ/L (136-145); TROPONIN I < 0.02 NG/ML (< 0.10)
[2020-09-12] MEDS ORDERED: ISOVUE-370 76% 100ML VIAL As Ordered ONE (21:42)
[2020-09-12 22:53] LABS: INR 1.05; PARTIAL THROMBOPLASTIN TIME 35.5 SECONDS (24.2-38.5)
[2020-09-12 22:55] LABS: ALBUMIN 3.9 GM/DL (3.2-5.2); ALT/SGPT 28 U/L (12-78); BILIRUBIN,DIRECT 0.2 MG/DL (0.0-0.2); BILIRUBIN,TOTAL 0.5 MG/DL (0.2-1.0); C REACTIVE PROTEIN QUANTITATIV 1.68 MG/DL (0.00-0.30); FERRITIN 273 NG/ML (26-388); LDH LACTATE DEHYDROGENASE 206 U/L (87-241)
[2020-09-12 22:56] LABS: D-DIMER QUANT 741.86 ng/ml (<500)
--- NOTE | 2020-09-12 23:30 | REPVR ---
PROCEDURE INFORMATION: Exam: CT Angiography Chest with Contrast Exam date and time: 09/12/20 (10:29pm) Age: 59 years old Clinical indication: Cough and SOB. History of pulmonary embolism. TECHNIQUE: Imaging protocol: Computed tomographic angiography of the chest with intravenous contrast. 3D rendering (Not supervised by radiologist): MIP and/or 3D reconstructed images were created by the technologist. Radiation optimization: All CT scans at this facility use at least one of these dose optimization techniques: automated exposure control; mA and/or kV adjustment per patient size (includes targeted exams where dose is matched to clinical indication); or iterative reconstruction. Contrast material: Isovue 370 Contrast volume: 75 ml Contrast route: IV COMPARISON: CTA CHEST of 10/04/19 CTA CHEST of 05/13/19 FINDINGS: Pulmonary arteries: Normal. No pulmonary emboli. Aorta: Unremarkable. No aortic aneurysm. No aortic dissection. Lungs: Scattered hazy ground glass opacities (many peripheral in location). No dense consolidation. No masses. Pleural space: Unremarkable. No pneumothorax. No pleural effusions. Heart: Unremarkable. No cardiomegaly. No pericardial effusion. Lymph nodes: Unremarkable. No enlarged lymph nodes. Bones/joints: Unremarkable. No acute fracture. Soft tissues: Unremarkable. Upper abdomen: Mildly prominent spleen. Prominent, thickened adrenal glands, bilaterally (unchanged appearance). IMPRESSION: Hazy bilateral ground glass opacities -- compatible with Covid pneumonia, eg. Clinical and laboratory correlation are suggested. Suggest close follow-up. No filling defects suspicious for pulmonary emboli are seen. There is no CT evidence of aortic dissection nor leakage. No aortic aneurysm is appreciated. Prominent spleen (unchanged). Electronically signed by: Ashlee Wright On 09/12/2020 23:30:00 PM
[2020-09-13] MEDS ORDERED: ELIQ5TAB PO (00:03)
[2020-09-13] MEDS ORDERED: FURO40TA2 PO (00:03)
[2020-09-13] MEDS ORDERED: BENA10TA PO (00:03)
[2020-09-13] MEDS ORDERED: ALEV220T22 PO (00:03)
[2020-09-13 03:32] VITALS: BP 153/77
--- NOTE | 2020-09-13 20:33 | ECGEPIP ---
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
== END 2020-09-13 03:41 | disposition home or self-care (01) ==
LOC: M ED 19:10
DX: J12.82 Pneumonia due to coronavirus disease 2019 (principal); I11.0 Hypertensive heart disease with heart failure; I25.10 Atherosclerotic heart disease of native coronary artery without angina pectoris; Z86.711 Personal history of pulmonary embolism; Z79.01 Long term (current) use of anticoagulants; Z79.899 Other long term (current) drug therapy
CPT/HCPCS: 36415; 71045; 71275; 80048; 80076; 82550; 82553; 82728; 83605; 83615; 83880; 85025; 85379; 85384; 85610; 85730; 86140; 87040; 87486; 87581; 87633; 87798; 93005; 99285; Q9967

== ENCOUNTER 2020-09-13 03:55 | Outpatient (CLI) | payer OTHER ==
--- NOTE | 2020-09-13 01:33 | HPEPDOC ---
[facility] Medical History & Physical Date of Admission Sep 13, 2020 Date of Service: Sep 13, 2020 Primary Care Physician: DAISY HINES MD Attending Physician: REBECA SERVIN MD History and Physical TIME OF SERVICE: 245am CHIEF COMPLAINT: cough HISTORY OF PRESENT ILLNESS: This 59 yr old male presented w c/o coughing for the last 3 days. The OTC medications he has been taking have not been helping. Despite not having any known COVID + contacts he was diagnosed with COVID 19 this evening. REVIEW OF SYSTEMS: 12-point review of systems negative except as listed in HPI PAST MEDICAL/ SURGICAL HISTORY: Chronic HTN Possible PE Obesity Umbilical hernia repair SOCIAL HISTORY: Non-smoker FAMILY HISTORY: Cancer, CAD ALLERGIES: Please see below. HOME MEDICATIONS: Please see below. PHYSICAL EXAMINATION: Vital Signs Date Time Temp Pulse Resp B/P (MAP) Pulse Ox O2 Delivery O2 Flow Rate FiO2 09/13/20 04:00 98.4 83 18 131/72 (91) 95 Room Air GENERAL APPEARANCE: well nourished/ well developed NAD HEENT: EOMI / mask in place LUNGS: not using accessory muscles / on room air NEUROLOGICAL: speech not dysarthric PSYCHIATRIC: A&O x 3 LABORATORY DATA: D-dimer was 741.86, CRP was 1.68, BNP was 144 IMAGING: n/a MICROBIOLOGY: + COVID 19 ASSESSMENT: Mr. Sofia is a 59 yr old w a hx of HTN and PE? who meets criteria for Bamlanivimab infusion. PLAN: 1. COVID-19 Plan: transfer to [facility] under outpatient status / COVIE-19 order set with Bamlanivimab infusion Home Medications Scheduled Amlodipine Besylate (Amlodipine Besylate) 5 Mg Tab, 5 MG PO DAILY Apixaban (Eliquis) 5 Mg Tablet, 5 MG PO BID Benazepril Hcl (Benazepril HCl) 10 Mg Tablet, 10 MG PO DAILY Furosemide (Furosemide) 40 Mg Tablet, 40 MG PO DAILY Loratadine (Loratadine) 10 Mg Tab, 10 MG PO DAILY Scheduled PRN Naproxen Sodium (Aleve) 220 Mg Tablet, 440 MG PO BID PRN for PAIN Allergies Coded Allergies: No Known Allergies (Unverified , 06/01/18) A-FIB/CHADSVASC A-FIB History Current/History of A-Fib/PAF?: No Current PO Anticoag Therapy: No MALATHIREBECA MD Sep 13, 2020 01:33
[~2020-09-13 03:55] MED LIST changes: +ALBUTEROL 90 MCG/ACT 8GM HFA INHALER INH PRN; +ALBUTEROL SULFATE 2.5 MG/0.5 ML INH NEB SOLN INH PRN; +ALEV220T22 PO; +BENA10TA PO; +EPINEPHrine INJ 1 MG/ML 1ML AMP IM PRN; +NS 1,000 ML IV SCH; +diphenhydrAMINE 50MG/ML VIAL (J1200) IV PRN; +methylPREDNISolone 125MG 2ML VIAL IV PRN
[2020-09-13 04:00] VITALS: BP 131/72
[2020-09-13] MEDS ORDERED: BAMLANIVIMAB 700 MG in NS 250 ML IV ONE (05:00)
[2020-09-13 05:38] VITALS: BP 133/75
[2020-09-13 06:30] VITALS: BP 140/87
== END 2020-09-13 08:00 ==
LOC: M OPCLI4 03:55 → M ICU 04:00 → M OPCLI4 08:00
PROVIDERS: ATTEND Internal Medicine
DX: U07.1 COVID-19 (principal)
CPT/HCPCS: 96361; M0239

== ENCOUNTER → 2021-01-16 | Outpatient (REF) | payer OTHER ==
[~2021-01-16] MED LIST changes: -ALBUTEROL 90 MCG/ACT 8GM HFA INHALER INH PRN; -ALBUTEROL SULFATE 2.5 MG/0.5 ML INH NEB SOLN INH PRN; -EPINEPHrine INJ 1 MG/ML 1ML AMP IM PRN; -NS 1,000 ML IV SCH; -diphenhydrAMINE 50MG/ML VIAL (J1200) IV PRN; -methylPREDNISolone 125MG 2ML VIAL IV PRN
[2021-01-16 14:11] LABS: HEMATOCRIT 44.3 % (42.0-52.0); HEMOGLOBIN 14.5 g/dl (13.5-17.5); MEAN CORPUSCULAR HEMOGLOBIN 28.5 pg (27.0-33.0); MEAN CORPUSCULAR HGB CONC 32.7 g/dl (32.0-36.5); MEAN CORPUSCULAR VOLUME 87.2 fl (80.0-96.0); PLATELET COUNT, AUTOMATED 232 10^3/uL (150-450); RED BLOOD COUNT 5.08 10^6/uL (4.30-6.10); WHITE BLOOD COUNT 5.5 10^3/uL (4.0-10.0)
[2021-01-16 14:55] LABS: ALT/SGPT 31 U/L (12-78); BILIRUBIN,TOTAL 0.5 MG/DL (0.2-1.0); BLOOD UREA NITROGEN 20 MG/DL (7-18); CALCIUM LEVEL 8.8 MG/DL (8.8-10.2); CARBON DIOXIDE LEVEL 27 MEQ/L (21-32); CHLORIDE LEVEL 103 MEQ/L (98-107); GLOMERULAR FILTRATION RATE > 60.0 (>49); GLUCOSE, FASTING 96 MG/DL (70-100); POTASSIUM SERUM 3.8 MEQ/L (3.5-5.1); SODIUM LEVEL 139 MEQ/L (136-145); TOTAL PROTEIN 7.2 GM/DL (6.4-8.2)
== END ==
LOC: M SFHCPLAZ 10:00
PROVIDERS: ATTEND Family Medicine
DX: I10 Essential (primary) hypertension (principal); E04.1 Nontoxic single thyroid nodule

== ENCOUNTER → 2021-02-16 | Outpatient (CLI) | payer OTHER ==
--- NOTE | 2021-02-16 09:18 | REP ---
INDICATION: RENAL ARTERY STENOSIS; RENAL ARTERY STENOSIS, ANEURYSM. COMPARISON: Comparison sonography [address] study September 12, 2020.. TECHNIQUE: Urinary tract sonography. Renal artery Doppler assessment. FINDINGS: Scanning at the level of the urinary bladder shows no abnormality. Renal cortical echogenicity pattern is normal bilaterally and contours are smooth. There is no evidence of hydronephrosis, cyst, mass, or calculus in either kidney. The right kidney measures 12.5 x 6.7 x 4.9 cm. Left renal dimensions are 12.4 x 6.2 x 6.6 cm. Renal artery Doppler: Peak systolic flow velocity in the abdominal aorta at the level of the main renal arteries is normal recorded at 132 centimeters/second. Peak systolic flow velocity in the left main renal artery is 131 centimeters/second and that in the right is 154 centimeters/second. These values are normal. Renal to aortic velocity ratios are therefore normal at 1.2 on the right and 1.0 on the left. 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 Intralobar artery resistive indices and acceleration times are measured in the upper mid and lower pole of each kidney. These values are normal bilaterally. IMPRESSION: Normal urinary tract sonography. 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 This is measuring somewhat larger than on the prior study from June 01, 2020. There is no evidence of renal artery stenosis. <Electronically signed by Hesham John > 02/16/21 0914
== END ==
LOC: M RAD 07:26
PROVIDERS: ATTEND Physician Assistant
DX: I72.2 Aneurysm of renal artery (principal)

== ENCOUNTER → 2021-04-13 | Outpatient (CLI) | payer OTHER ==
[~2021-04-13] MED LIST changes: -DOXY100C PO; +DOXY100C3 PO; +ISOVUE-370 76% 100ML VIAL As Ordered ONE
--- NOTE | 2021-04-13 10:46 | REP ---
INDICATION: ANEURYSM OF RENAL ARTERY COMPARISON: 10/04/2019, 04/21/2018. TECHNIQUE: CT Scan of the abdomen was performed with intravenous administration of 100 cc of Isovue 370, without oral contrast. Sagittal and coronal reconstruction images. FINDINGS: Liver: Normal Gallbladder: Unremarkable. Spleen: Normal. Adrenals: Normal. Pancreas: Normal. Kidneys: Normal. Small and large bowel: Unremarkable. Free fluid: None. Abdominal aorta: No aneurysm or dissection. There is no evidence of mesenteric or renal artery stenosis. There is a stable aneurysm of the distal right renal artery measuring 17 x 21 mm. There is a stable aneurysm of the distal left renal artery measuring 12 mm in diameter. Adenopathy: None. Osseous structures: There are degenerative changes of the spine without compression deformity. Lung bases: There are minor bibasilar fibrotic changes. IMPRESSION: Stable bilateral renal artery aneurysms. <Electronically signed by Tito Higginbotham > 04/13/21 [id number]
== END ==
LOC: M RAD 10:01
PROVIDERS: ATTEND Surgery Vascular Surgery
DX: I72.2 Aneurysm of renal artery (principal)
CPT/HCPCS: 74175; Q9967

== ENCOUNTER → 2021-04-20 | Outpatient (CLI) | payer OTHER ==
[~2021-04-20] MED LIST changes: -ISOVUE-370 76% 100ML VIAL As Ordered ONE
[2021-04-20 12:37] LABS: BLOOD UREA NITROGEN 21 MG/DL (7-18); CREATININE FOR GFR 0.81 MG/DL (0.70-1.30); GLOMERULAR FILTRATION RATE > 60.0 (>49)
== END ==
LOC: M WUC 09:18
PROVIDERS: ATTEND Surgery Vascular Surgery
DX: I72.2 Aneurysm of renal artery (principal)

== ENCOUNTER → 2021-05-22 | Outpatient (CLI) | payer OTHER ==
[2021-05-22 11:23] LABS: BASO % 0.6 % (0.0-1.0); EOS # 0.3 10^3/uL (0.0-0.5); EOS % 4.4 % (0.0-3.0); HEMATOCRIT 44.2 % (42.0-52.0); HEMOGLOBIN 14.5 g/dl (13.5-17.5); LYMPH # 1.4 10^3/uL (1.5-5.0); LYMPH % 19.8 % (24.0-44.0); MEAN CORPUSCULAR HEMOGLOBIN 28.5 pg (27.0-33.0); MEAN CORPUSCULAR HGB CONC 32.8 g/dl (32.0-36.5); MEAN CORPUSCULAR VOLUME 86.8 fl (80.0-96.0); MONO # 0.9 10^3/uL (0.0-0.8); MONO % 12.8 % (2.0-8.0); NEUTROPHILS # 4.3 10^3/uL (1.5-8.5); NEUTROPHILS % 62.1 % (36.0-66.0); PLATELET COUNT, AUTOMATED 261 10^3/uL (150-450); RED BLOOD COUNT 5.09 10^6/uL (4.30-6.10); WHITE BLOOD COUNT 6.9 10^3/uL (4.0-10.0)
[2021-05-22 11:30] LABS: BLOOD UREA NITROGEN 23 MG/DL (7-18); CALCIUM LEVEL 8.7 MG/DL (8.8-10.2); CARBON DIOXIDE LEVEL 31 MEQ/L (21-32); CHLORIDE LEVEL 106 MEQ/L (98-107); CREATININE FOR GFR 0.88 MG/DL (0.70-1.30); GLOMERULAR FILTRATION RATE > 60.0 (>49); GLUCOSE, FASTING 97 MG/DL (70-100); SODIUM LEVEL 141 MEQ/L (136-145)
[2021-05-22 11:45] LABS: INR 1.05; PROTHROMBIN TIME 14.1 SECONDS (12.7-14.5)
[2021-05-22 11:46] LABS: PARTIAL THROMBOPLASTIN TIME 33.1 SECONDS (25.9-37.0)
== END ==
LOC: M LAB 10:35
PROVIDERS: ATTEND Surgery Vascular Surgery
DX: Z01.818 Encounter for other preprocedural examination (principal); D69.8 Other specified hemorrhagic conditions; I72.2 Aneurysm of renal artery

== ENCOUNTER → 2021-05-26 | Outpatient (CLI) | payer OTHER | LOC: M LABSMTC 10:45 | PROVIDERS: ATTEND Surgery Vascular Surgery | DX: Z01.818 Encounter for other preprocedural examination (principal); D69.8 Other specified hemorrhagic conditions ==

== ENCOUNTER → 2021-07-02 | Outpatient (CLI) | payer OTHER ==
--- NOTE | 2021-07-02 10:58 | REP ---
INDICATION: COUGH, UNSPECIFIED. COMPARISON: 09/12/2020 the latest prior a portable exam TECHNIQUE: PA and lateral FINDINGS: The superior mediastinal structures are midline. The cardiac silhouette is unremarkable in size, shape, and position. The diaphragmatic surfaces of the lungs are regular, and the costophrenic angles are clear. The pulmonary lewis are clear. The imaged osseous structures are intact. IMPRESSION: There is no acute cardiopulmonary disease. No significant change compared to the prior exam. <Electronically signed by Giuseppe Perales > 07/02/21 [id number]
== END ==
LOC: M PLAIMG 09:35
PROVIDERS: ATTEND Internal Medicine Pulmonary Disease
DX: R05.9 Cough, unspecified (principal)

== ENCOUNTER → 2021-08-10 | Outpatient (CLI) | payer OTHER ==
[~2021-08-10] MED LIST changes: -LISI20TA20 PO; +LISI20TA37 PO
== END ==
LOC: M LABSMTC 09:45
PROVIDERS: ATTEND Surgery Vascular Surgery
DX: U07.1 COVID-19 (principal)

== ENCOUNTER → 2021-10-01 | Outpatient (CLI) | payer OTHER ==
[2021-10-01 10:48] LABS: HEMATOCRIT 43.6 % (42.0-52.0); MEAN CORPUSCULAR HEMOGLOBIN 27.8 pg (27.0-33.0); MEAN CORPUSCULAR HGB CONC 32.1 g/dl (32.0-36.5); MEAN CORPUSCULAR VOLUME 86.5 fl (80.0-96.0); PLATELET COUNT, AUTOMATED 264 10^3/uL (150-450); RED BLOOD COUNT 5.04 10^6/uL (4.30-6.10)
[2021-10-01 10:57] LABS: PROTHROMBIN TIME 13.6 SECONDS (12.7-14.5)
[2021-10-01 11:27] LABS: ALBUMIN 3.6 GM/DL (3.2-5.2); ALT/SGPT 41 U/L (12-78); BILIRUBIN,TOTAL 0.2 MG/DL (0.2-1.0); BLOOD UREA NITROGEN 26 MG/DL (7-18); CALCIUM LEVEL 8.7 MG/DL (8.8-10.2); CARBON DIOXIDE LEVEL 29 MEQ/L (21-32); CHLORIDE LEVEL 104 MEQ/L (98-107); CHOLESTEROL LEVEL 158 MG/DL (<200); CHOLESTEROL RISK RATIO 3.434 (<5); CREATININE FOR GFR 1.12 MG/DL (0.70-1.30); GLOMERULAR FILTRATION RATE > 60.0 (>49); GLUCOSE, FASTING 97 MG/DL (70-100); HDL CHOLESTEROL 46 MG/DL (>40); LDL CHOLESTEROL 72 MG/DL (<100); NON-HDL-C 112 MG/DL; POTASSIUM SERUM 4.6 MEQ/L (3.5-5.1); SODIUM LEVEL 138 MEQ/L (136-145); TOTAL PROTEIN 6.9 GM/DL (6.4-8.2); TRIGLYCERIDES LEVEL 200 MG/DL (<150)
[2021-10-01 11:38] LABS: HEMOGLOBIN A1c 5.6 %
== END ==
LOC: M PLALAB 09:28
PROVIDERS: ATTEND Student in an Organized Health Care Education/Training Program
DX: I10 Essential (primary) hypertension (principal)

== ENCOUNTER 2022-03-06 16:48 | Emergency (ER) | payer OTHER ==
[~2022-03-06] VITALS: Ht 182.9 cm; Wt 148.5 kg
[2022-03-06] MEDS ORDERED: BENA-8 (17:03)
[2022-03-06] MEDS ORDERED: LORA-674 (17:03)
[2022-03-06] MEDS ORDERED: BENAZEPRIL 20 MG TAB PO ONE (17:50)
[2022-03-06] MEDS ORDERED: amLODIPine 5 MG TAB PO ONE (17:50)
[2022-03-06 17:57] LABS: BASO % 0.5 % (0.0-1.0); EOS # 0.4 10^3/uL (0.0-0.5); EOS % 4.6 % (0.0-3.0); HEMATOCRIT 41.7 % (42.0-52.0); HEMOGLOBIN 13.6 g/dl (13.5-17.5); LYMPH # 1.6 10^3/uL (1.5-5.0); LYMPH % 20.1 % (24.0-44.0); MEAN CORPUSCULAR HEMOGLOBIN 28.1 pg (27.0-33.0); MEAN CORPUSCULAR HGB CONC 32.6 g/dl (32.0-36.5); MEAN CORPUSCULAR VOLUME 86.2 fl (80.0-96.0); MONO # 0.6 10^3/uL (0.0-0.8); MONO % 7.3 % (2.0-8.0); NEUTROPHILS # 5.2 10^3/uL (1.5-8.5); NEUTROPHILS % 67.2 % (36.0-66.0); PLATELET COUNT, AUTOMATED 233 10^3/uL (150-450); RED BLOOD COUNT 4.84 10^6/uL (4.30-6.10); WHITE BLOOD COUNT 7.8 10^3/uL (4.0-10.0)
[2022-03-06 18:11] LABS: INR 0.92; PROTHROMBIN TIME 12.8 SECONDS (12.7-14.5)
[2022-03-06] MEDS ORDERED: ISOVUE-370 76% 100ML VIAL As Ordered ONE (18:28)
[2022-03-06 18:34] LABS: CK-MB VALUE MASS 2.2 NG/ML (<3.6); MB/CK RELATIVE INDEX 1.25 (< OR =4)
[2022-03-06 18:35] LABS: GLUCOSE, FASTING 96 MG/DL (70-100)
[2022-03-06 18:36] LABS: ALBUMIN 3.7 GM/DL (3.2-5.2); ALT/SGPT 33 U/L (12-78); BILIRUBIN,DIRECT < 0.1 MG/DL (0.0-0.2); BILIRUBIN,TOTAL 0.4 MG/DL (0.2-1.0); BLOOD UREA NITROGEN 27 MG/DL (7-18); CALCIUM LEVEL 8.6 MG/DL (8.8-10.2); CARBON DIOXIDE LEVEL 30 MEQ/L (21-32); CHLORIDE LEVEL 107 MEQ/L (98-107); CREATININE FOR GFR 1.34 MG/DL (0.70-1.30); GLOMERULAR FILTRATION RATE 57.5 (>49); POTASSIUM SERUM 3.8 MEQ/L (3.5-5.1); SODIUM LEVEL 141 MEQ/L (136-145); TOTAL PROTEIN 6.7 GM/DL (6.4-8.2)
[2022-03-06 19:16] LABS: RSV AMPLIFICATION NEGATIVE (NEGATIVE)
[2022-03-06 19:24] VITALS: BP 195/100
[2022-03-06 19:37] LABS: CK-MB VALUE MASS 2.2 NG/ML (<3.6); MB/CK RELATIVE INDEX 1.11 (< OR =4)
[2022-03-06 21:53] VITALS: BP 180/98
== END 2022-03-06 22:25 | disposition home or self-care (01) ==
LOC: M ED 16:48
DX: R06.02 Shortness of breath (principal); I10 Essential (primary) hypertension; G47.33 Obstructive sleep apnea (adult) (pediatric); I25.10 Atherosclerotic heart disease of native coronary artery without angina pectoris; Z86.718 Personal history of other venous thrombosis and embolism; Z79.899 Other long term (current) drug therapy; Z79.01 Long term (current) use of anticoagulants
CPT/HCPCS: 71045; 71275; 80047; 80048; 80076; 82550; 82553; 85025; 85610; 87631; 93005; 93041; 94760; 99285; Q9967

== ENCOUNTER → 2022-05-08 | Outpatient (REF) | payer OTHER ==
[~2022-05-08] MED LIST changes: +ALBU6.7H6 INH; +BENA-8; +LORA-674; -PROV108A INH
[2022-05-08 18:46] LABS: CALCIUM LEVEL 8.9 MG/DL (8.8-10.2); CREATININE FOR GFR 1.52 MG/DL (0.70-1.30); GLOMERULAR FILTRATION RATE 49.7 (>49); POTASSIUM SERUM 4.2 MEQ/L (3.5-5.1)
== END ==
LOC: M PLALAB 16:57
PROVIDERS: ATTEND Student in an Organized Health Care Education/Training Program
DX: N14.1 Nephropathy induced by other drugs, medicaments and biological substances (principal)

== ENCOUNTER 2022-06-11 16:37 | Emergency (ER) | payer OTHER ==
[~2022-06-11] VITALS: Ht 182.9 cm; Wt 143.6 kg
[2022-06-11] MEDS ORDERED: CETI-24 (17:38)
[2022-06-11] MEDS ORDERED: FURO40TA2 (17:38)
[2022-06-12 01:31] VITALS: BP 146/82
== END 2022-06-12 01:32 | disposition home or self-care (01) ==
LOC: M ED 16:37
DX: S89.92XA Unspecified injury of left lower leg, initial encounter (principal); W18.49XA Other slipping, tripping and stumbling without falling, initial encounter; Y99.0 Civilian activity done for income or pay; I51.9 Heart disease, unspecified; Z86.711 Personal history of pulmonary embolism; M17.12 Unilateral primary osteoarthritis, left knee; Z79.01 Long term (current) use of anticoagulants; Z79.899 Other long term (current) drug therapy

== ENCOUNTER → 2022-06-20 | Outpatient (CLI) | payer OTHER ==
[~2022-06-20] MED LIST changes: +CETI-24; -DOXY-350 PO; +DOXY-444 PO; +FURO40TA2
== END ==
LOC: M RAD 12:43
PROVIDERS: ATTEND Physician Assistant
DX: I72.2 Aneurysm of renal artery (principal); N26.1 Atrophy of kidney (terminal); Z96.0 Presence of urogenital implants

== ENCOUNTER → 2022-06-20 | Outpatient (CLI) | payer OTHER ==
[2022-06-21 21:09] LABS: ANA (HEP2) Negative (.)
== END ==
LOC: M RAD 12:52
PROVIDERS: ATTEND Student in an Organized Health Care Education/Training Program
DX: M19.031 Primary osteoarthritis, right wrist (principal); M19.021 Primary osteoarthritis, right elbow; M19.041 Primary osteoarthritis, right hand; M19.042 Primary osteoarthritis, left hand

== ENCOUNTER → 2022-08-02 | Outpatient (CLI) | payer OTHER ==
[2022-08-02 18:03] LABS: CALCIUM LEVEL 8.7 MG/DL (8.3-10.6); CREATININE FOR GFR 1.45 MG/DL (0.70-1.30); GLOMERULAR FILTRATION RATE 52.5 (>49); POTASSIUM SERUM 4.3 MMOL/L (3.5-5.1)
== END ==
LOC: M PLALAB 15:45
PROVIDERS: ATTEND Student in an Organized Health Care Education/Training Program
DX: I10 Essential (primary) hypertension (principal)

== ENCOUNTER → 2022-08-23 | Outpatient (CLI) | payer OTHER ==
[~2022-08-23] MED LIST changes: +ASPI-226; +DICL20GE TP
== END ==
LOC: M RAD 11:39
PROVIDERS: ATTEND Student in an Organized Health Care Education/Training Program
DX: N28.9 Disorder of kidney and ureter, unspecified (principal); Z95.828 Presence of other vascular implants and grafts

== ENCOUNTER 2022-08-28 08:29 | Emergency (ER) | payer OTHER ==
[~2022-08-28] VITALS: Ht 182.9 cm; Wt 146.8 kg
[~2022-08-28 08:29] MED LIST changes: -ASPI-226; -DICL20GE TP
[2022-08-28] MEDS ORDERED: BENA-8 (08:39)
[2022-08-28] MEDS ORDERED: ASPI-226 (08:39)
[2022-08-28] MEDS ORDERED: DICL20GE TP (12:10)
[2022-08-28 12:31] VITALS: BP 148/84
== END 2022-08-28 12:47 | disposition home or self-care (01) ==
LOC: M ED 08:29
DX: S46.312A Strain of muscle, fascia and tendon of triceps, left arm, initial encounter (principal); S46.812A Strain of other muscles, fascia and tendons at shoulder and upper arm level, left arm, initial encounter; I10 Essential (primary) hypertension; Z79.01 Long term (current) use of anticoagulants; Z79.82 Long term (current) use of aspirin; Z79.899 Other long term (current) drug therapy

== ENCOUNTER → 2022-09-03 | Outpatient (CLI) | payer OTHER ==
[~2022-09-03] MED LIST changes: +ASPI-226; +DICL20GE TP
== END ==
LOC: M SOG 08:35
PROVIDERS: ATTEND Orthopaedic Surgery
DX: M19.012 Primary osteoarthritis, left shoulder (principal)

== ENCOUNTER → 2022-09-19 | Outpatient (CLI) | payer OTHER | LOC: M PLARAD 07:50 | PROVIDERS: ATTEND Orthopaedic Surgery | DX: M67.814 Other specified disorders of tendon, left shoulder (principal) ==

== ENCOUNTER → 2022-11-04 | Outpatient (CLI) | payer OTHER | LOC: M PLAIMG 12:14 | PROVIDERS: ATTEND Orthopaedic Surgery | DX: M75.122 Complete rotator cuff tear or rupture of left shoulder, not specified as traumatic (principal); S43.432A Superior glenoid labrum lesion of left shoulder, initial encounter; X58.XXXA Exposure to other specified factors, initial encounter; Y92.9 Unspecified place or not applicable; Z53.9 Procedure and treatment not carried out, unspecified reason ==

== ENCOUNTER → 2022-12-30 | Outpatient (CLI) | payer OTHER ==
[~2022-12-30] MED LIST changes: +ACET-683 PO; -ASPI-226; +ASPI-226 PO; +BENA-8 PO; -CETI-24; +CETI-24 PO; -FURO40TA2
== END ==
LOC: M PLAIMG 07:49
PROVIDERS: ATTEND Internal Medicine Pulmonary Disease
DX: R91.8 Other nonspecific abnormal finding of lung field (principal)

== ENCOUNTER → 2023-01-03 | Outpatient (CLI) | payer OTHER ==
[2023-01-03 18:38] LABS: ALBUMIN 4.1 G/DL (3.2-5.2); BILIRUBIN,TOTAL 0.3 MG/DL (0.3-1.2); CALCIUM LEVEL 8.7 MG/DL (8.3-10.6); CREATININE FOR GFR 1.57 MG/DL (0.70-1.30); GLOMERULAR FILTRATION RATE 47.7 (>49); POTASSIUM SERUM 4.3 MMOL/L (3.5-5.1)
== END ==
LOC: M PLALAB 14:18
PROVIDERS: ATTEND Student in an Organized Health Care Education/Training Program
DX: I51.7 Cardiomegaly (principal); M79.89 Other specified soft tissue disorders

== ENCOUNTER 2023-01-16 09:21 | Day surgery (SDC) | payer OTHER ==
[~2023-01-16] VITALS: Ht 182.9 cm; Wt 162.4 kg
[~2023-01-16 09:21] MED LIST changes: +TRANEXAMIC ACID INJection 1,000 MG in NS 100 ML IV ONE; +oxyCODONE 5MG TAB PO ONE
[2023-01-16] MEDS ORDERED: LIDOCAINE 2% 100MG/5ML SDV (FOR ANES.) As Ordered ONE (10:51)
[2023-01-16] MEDS ORDERED: propofoL 200 MG/20 ML VIAL As Ordered ONE ×2 (10:51→12:06)
[2023-01-16] MEDS ORDERED: ROCURONIUM BROMIDE 50MG/5ML VIAL As Ordered ONE ×2 (10:51→12:27)
[2023-01-16] MEDS ORDERED: ONDANSETRON 4MG 2ML VIAL As Ordered ONE (10:52)
[2023-01-16] MEDS ORDERED: ACETAMINOPHEN 1000MG 100ML IV BAG As Ordered ONE (10:52)
[2023-01-16] MEDS ORDERED: ceFAZolin SOD 2 GM in IV 1 EA IV ONE (10:55)
[2023-01-16] MEDS ORDERED: ceFAZolin SOD 1 GM in D5W MINI-BAG PLUS 50 ML IV ONE (10:55)
[2023-01-16] MEDS ORDERED: ROPIvacaine 0.5% 30ML VIAL PN ONE (10:55)
[2023-01-16] MEDS ORDERED: LIDOCAINE 1% SDV 5ML VIAL PN ONE (10:55)
[2023-01-16] MEDS ORDERED: EPINEPHrine INJ 1 MG/ML 1ML AMP As Ordered ONE (10:59)
[2023-01-16] MEDS ORDERED: LIDOCAINE 1% SDV 30ML VIAL As Ordered ONE (10:59)
[2023-01-16] MEDS: MIDAZOLAM INJ 2MG/2ML VIAL IV PRN ×2 (11:27→11:30)
[2023-01-16] MEDS: fentaNYL 100 MCG/2 ML INJECTION IV PRN ×2 (11:27→11:30)
[2023-01-16] MEDS ORDERED: ePHEDrine SULFATE 25 MG/5 ML(5MG/ML) SYRINGE As Ordered ONE (12:24)
[2023-01-16] MEDS ORDERED: PHENYLephrine 500MCG 5ML (100MCG/ML) SYRINGE As Ordered ONE (12:24)
[2023-01-16] MEDS ORDERED: SUGAMMADEX SODIUM 500 MG/5 ML VIAL (BRIDION) As Ordered ONE (13:44)
[2023-01-16] MEDS ORDERED: oxyCODONE 5MG TAB PO PRN (13:50)
[2023-01-16] MEDS ORDERED: LR 1,000 ML IV SCH (13:50)
[2023-01-16] MEDS ORDERED: ONDANSETRON 4MG 2ML VIAL IV PRN (13:50)
[2023-01-16] MEDS ORDERED: HYDROMORPHONE HCL 0.5 MG/ 0.5 ML SYRINGE IV PRN (13:50)
[2023-01-16] MEDS ORDERED: fentaNYL 100 MCG/2 ML INJECTION IV PRN (13:50)
[2023-01-16] MEDS ORDERED: PERC10TA26 PO (14:16)
[2023-01-16 15:20] VITALS: BP 160/77; TEMP 97.9; O2SAT 94
== END 2023-01-16 15:25 | disposition home or self-care (01) ==
LOC: M SDC 09:21
PROVIDERS: ATTEND Orthopaedic Surgery
DX: M75.122 Complete rotator cuff tear or rupture of left shoulder, not specified as traumatic (principal); R91.1 Solitary pulmonary nodule; G47.33 Obstructive sleep apnea (adult) (pediatric); Z86.711 Personal history of pulmonary embolism; I72.2 Aneurysm of renal artery; M19.90 Unspecified osteoarthritis, unspecified site; Z96.0 Presence of urogenital implants; Z79.899 Other long term (current) drug therapy; Z79.01 Long term (current) use of anticoagulants; Z79.82 Long term (current) use of aspirin
CPT/HCPCS: 29826; 29827; 29828; 64415; C1713; J0131; J0171; J1100; J2250; J2370; J2405; J3010

== ENCOUNTER → 2023-02-14 | Outpatient (CLI) | payer OTHER ==
[~2023-02-14] MED LIST changes: +PERC10TA26 PO; -TRANEXAMIC ACID INJection 1,000 MG in NS 100 ML IV ONE; -oxyCODONE 5MG TAB PO ONE
== END ==
LOC: M RAD 08:33
PROVIDERS: ATTEND Physician Assistant
DX: I70.1 Atherosclerosis of renal artery (principal)

== ENCOUNTER → 2023-03-24 | Outpatient (CLI) | payer OTHER ==
[2023-03-24 13:36] LABS: HEMATOCRIT 41.9 % (42.0-52.0); HEMOGLOBIN 13.8 g/dl (13.5-17.5); MEAN CORPUSCULAR HEMOGLOBIN 29.3 pg (27.0-33.0); MEAN CORPUSCULAR HGB CONC 32.9 g/dl (32.0-36.5); PLATELET COUNT, AUTOMATED 258 10^3/uL (150-450); RED BLOOD COUNT 4.71 10^6/uL (4.30-6.10); WHITE BLOOD COUNT 6.4 10^3/uL (4.0-10.0)
[2023-03-24 13:50] LABS: HEMOGLOBIN A1c 5.5 % (4.0-6.0)
[2023-03-24 14:02] LABS: ALBUMIN 3.9 G/DL (3.2-5.2); BILIRUBIN,TOTAL 0.4 MG/DL (0.3-1.2); CALCIUM LEVEL 8.9 MG/DL (8.3-10.6); CHOLESTEROL RISK RATIO 3.72 (<5); CREATININE FOR GFR 1.32 MG/DL (0.70-1.30); GLOMERULAR FILTRATION RATE 58.3 (>49); HDL CHOLESTEROL 47.5 MG/DL (>40); LDL CHOLESTEROL 90.5 MG/DL (<100); NON-HDL-C 129.5 MG/DL; POTASSIUM SERUM 4.4 MMOL/L (3.5-5.1); TOTAL PROTEIN 6.9 G/DL (5.7-8.2)
[2023-03-24 14:05] LABS: THYROID STIMULATING HORMONE 1.622 uIU/ML (0.55-4.78)
== END ==
LOC: M PLALAB 09:32
PROVIDERS: ATTEND Student in an Organized Health Care Education/Training Program
DX: I10 Essential (primary) hypertension (principal); E04.1 Nontoxic single thyroid nodule

== ENCOUNTER 2023-06-05 12:43 | Emergency (ER) | payer OTHER ==
[2023-06-05 12:43] VITALS: BP 172/87; TEMP 98.2; O2SAT 96
[~2023-06-05 12:43] MED LIST changes: +LORA-1041; -LORA-674
[2023-06-05] MEDS ORDERED: ACETAMINOPHEN TAB 650MG DOSE (2X325MG) PO ONE (15:40)
== END 2023-06-05 17:15 | disposition home or self-care (01) ==
LOC: M ED 12:43
DX: S46.201A Unspecified injury of muscle, fascia and tendon of other parts of biceps, right arm, initial encounter (principal); X50.9XXA Other and unspecified overexertion or strenuous movements or postures, initial encounter; Y93.89 Activity, other specified; Y99.0 Civilian activity done for income or pay; I10 Essential (primary) hypertension; Z86.711 Personal history of pulmonary embolism; Z79.01 Long term (current) use of anticoagulants; Z79.82 Long term (current) use of aspirin; Z79.899 Other long term (current) drug therapy

== ENCOUNTER → 2023-06-06 | Outpatient (CLI) | payer OTHER | LOC: M SOG 10:43 | PROVIDERS: ATTEND Orthopaedic Surgery | DX: M79.621 Pain in right upper arm (principal) ==

== ENCOUNTER → 2023-08-27 | Outpatient (CLI) | payer OTHER | LOC: M RAD 08:06 | PROVIDERS: ATTEND Physician Assistant | DX: I70.1 Atherosclerosis of renal artery (principal); N26.1 Atrophy of kidney (terminal) ==

== ENCOUNTER → 2024-01-30 | Outpatient (CLI) | payer OTHER ==
[~2024-01-30] MED LIST changes: +DOXY-440 PO; -DOXY-444 PO
== END ==
LOC: M SOG 07:55
PROVIDERS: ATTEND Orthopaedic Surgery
DX: M75.122 Complete rotator cuff tear or rupture of left shoulder, not specified as traumatic (principal); M19.012 Primary osteoarthritis, left shoulder

== ENCOUNTER → 2024-02-27 | Outpatient (CLI) | payer OTHER | LOC: M RAD 07:58 | PROVIDERS: ATTEND Internal Medicine Pulmonary Disease | DX: R91.8 Other nonspecific abnormal finding of lung field (principal); R91.1 Solitary pulmonary nodule ==

== ENCOUNTER → 2024-03-30 | Outpatient (REF) | payer OTHER | LOC: M LAB REF 12:56 | PROVIDERS: ATTEND Internal Medicine Pulmonary Disease | DX: R05.9 Cough, unspecified (principal) ==

== ENCOUNTER → 2024-04-13 | Outpatient (CLI) | payer OTHER ==
[2024-04-13 12:54] LABS: BASO % 0.6 % (0.0-1.0); EOS # 0.3 10^3/uL (0.0-0.5); EOS % 4.1 % (0.0-3.0); HEMATOCRIT 41.4 % (42.0-52.0); HEMOGLOBIN 13.3 g/dl (13.5-17.5); LYMPH # 1.2 10^3/uL (1.5-5.0); LYMPH % 16.7 % (24.0-44.0); MEAN CORPUSCULAR HEMOGLOBIN 28.4 pg (27.0-33.0); MEAN CORPUSCULAR HGB CONC 32.1 g/dl (32.0-36.5); MEAN CORPUSCULAR VOLUME 88.5 fl (80.0-96.0); MONO # 0.7 10^3/uL (0.0-0.8); MONO % 9.6 % (2.0-8.0); NEUTROPHILS # 4.7 10^3/uL (1.5-8.5); NEUTROPHILS % 68.7 % (36.0-66.0); PLATELET COUNT, AUTOMATED 287 10^3/uL (150-450); RED BLOOD COUNT 4.68 10^6/uL (4.30-6.10); WHITE BLOOD COUNT 6.9 10^3/uL (4.0-10.0)
[2024-04-13 13:48] LABS: ALBUMIN 3.6 G/DL (3.2-5.2); BILIRUBIN,DIRECT 0.2 MG/DL (<0.4); BILIRUBIN,TOTAL 0.5 MG/DL (0.3-1.2); CHOLESTEROL RISK RATIO 3.88 (<5); CREATININE FOR GFR 1.36 MG/DL (0.70-1.30); FREE T4 1.19 NG/DL (0.89-1.76); GLOMERULAR FILTRATION RATE 56.2 (>49); HDL CHOLESTEROL 38.6 MG/DL (>40); LDL CHOLESTEROL 87.8 MG/DL (<100); NON-HDL-C 111.4 MG/DL; PHOSPHORUS LEVEL 3.1 MG/DL (2.4-5.1); POTASSIUM SERUM 4.9 MMOL/L (3.5-5.1); THYROID STIMULATING HORMONE 0.923 uIU/ML (0.55-4.78)
[2024-04-13 14:15] LABS: HEMOGLOBIN A1c 5.4 % (4.0-6.0)
== END ==
LOC: M PLALAB 09:56
DX: Z00.00 Encounter for general adult medical examination without abnormal findings (principal)

== ENCOUNTER → 2024-04-13 | Outpatient (CLI) | payer OTHER | LOC: M RAD 08:04 | PROVIDERS: ATTEND Physician Assistant | DX: I70.1 Atherosclerosis of renal artery (principal) ==

== ENCOUNTER → 2024-04-22 | Outpatient (REF) | payer OTHER | LOC: M SFHCPLAZ 16:18 | PROVIDERS: ATTEND Internal Medicine Hematology | DX: Z53.9 Procedure and treatment not carried out, unspecified reason (principal) ==

== ENCOUNTER → 2024-04-26 | Outpatient (CLI) | payer OTHER ==
[2024-04-26 10:42] LABS: FERRITIN 92.4 NG/ML (10.5-307.3); TOTAL 25(OH) VITAMIN D 23.9 NG/ML (20.0-100.0)
[2024-04-26 10:44] LABS: ALBUMIN 3.6 G/DL (3.2-5.2); BILIRUBIN,TOTAL 0.3 MG/DL (0.3-1.2); CREATININE FOR GFR 1.34 MG/DL (0.70-1.30); GLOMERULAR FILTRATION RATE 57.1 (>49); MAGNESIUM LEVEL 2.1 MG/DL (1.8-2.4); PERCENT SATURATION 22.3 % (19.7-50.0); POTASSIUM SERUM 4.3 MMOL/L (3.5-5.1); TOTAL PROTEIN 6.9 G/DL (5.7-8.2)
[2024-04-28 16:38] LABS: PSA FREE 0.4 ng/mL; PSA TOTAL 1.5 ng/mL (< OR = 4.0)
== END ==
LOC: M LAB 08:27
DX: R53.82 Chronic fatigue, unspecified (principal); D64.9 Anemia, unspecified; N18.31 Chronic kidney disease, stage 3a; R25.2 Cramp and spasm; Z12.5 Encounter for screening for malignant neoplasm of prostate

== ENCOUNTER → 2024-05-06 | Outpatient (REF) | payer OTHER | LOC: M SFHCPLAZ 17:16 | PROVIDERS: ATTEND Family Medicine | DX: I51.9 Heart disease, unspecified (principal) ==

== ENCOUNTER → 2024-05-19 | Outpatient (CLI) | payer OTHER | LOC: M PLALAB 08:38 | DX: I51.9 Heart disease, unspecified (principal) ==

== ENCOUNTER → 2024-05-28 | Outpatient (CLI) | payer OTHER | LOC: M CARPUL 09:25 | DX: I51.9 Heart disease, unspecified (principal) ==

== ENCOUNTER → 2024-06-04 | Outpatient (REF) | payer OTHER | LOC: M SFHCPLAZ 09:19 | PROVIDERS: ATTEND Internal Medicine Hematology | DX: D64.9 Anemia, unspecified (principal); Z53.9 Procedure and treatment not carried out, unspecified reason ==

== ENCOUNTER 2024-07-28 07:29 | Day surgery (SDC) | payer OTHER ==
[~2024-07-28] VITALS: Ht 182.9 cm; Wt 146.5 kg
[~2024-07-28 07:29] MED LIST changes: +LOSA100T46 PO; +VITA200048 PO
[2024-07-28] MEDS ORDERED: propofoL 200 MG/20 ML VIAL As Ordered ONE (08:25)
[2024-07-28 09:08] VITALS: TEMP 99
[2024-07-28 09:23] VITALS: BP 207/113; O2SAT 97
== END 2024-07-28 09:31 | disposition home or self-care (01) ==
LOC: M OPP 07:29
PROVIDERS: ATTEND Surgery
DX: D50.9 Iron deficiency anemia, unspecified (principal); K29.80 Duodenitis without bleeding; K25.9 Gastric ulcer, unspecified as acute or chronic, without hemorrhage or perforation; K29.70 Gastritis, unspecified, without bleeding; K31.89 Other diseases of stomach and duodenum; I10 Essential (primary) hypertension; R32 Unspecified urinary incontinence; G47.30 Sleep apnea, unspecified; Z79.82 Long term (current) use of aspirin; Z79.01 Long term (current) use of anticoagulants; Z79.899 Other long term (current) drug therapy; Z86.711 Personal history of pulmonary embolism

== ENCOUNTER → 2024-09-07 | Outpatient (REF) | payer OTHER | LOC: M SFHCPLAZ 20:03 | PROVIDERS: ATTEND Family Medicine | DX: I10 Essential (primary) hypertension (principal); R79.89 Other specified abnormal findings of blood chemistry; N18.2 Chronic kidney disease, stage 2 (mild); R74.8 Abnormal levels of other serum enzymes ==

== ENCOUNTER → 2024-09-24 | Outpatient (RCR) | payer OTHER | LOC: M PT 09:32 | DX: R60.0 Localized edema (principal) ==

== ENCOUNTER 2024-10-14 14:51 | Outpatient (RCR) | payer OTHER | END 2024-10-22 | LOC: M PT 14:51 | PROVIDERS: ATTEND Family Medicine | DX: R60.0 Localized edema (principal) ==

== ENCOUNTER 2024-11-03 15:45 | Outpatient (RCR) | payer MEDICARE, OTHER ==
[~2024-11-03 15:45] MED LIST changes: +CARV12.5 PO; +HYDR12CA PO
== END 2024-11-22 ==
LOC: M PT 15:45
DX: R60.0 Localized edema (principal)

== ENCOUNTER 2024-11-12 08:35 | Day surgery (SDC) | payer MEDICARE, OTHER ==
[~2024-11-12] VITALS: Ht 182.9 cm; Wt 145.8 kg
[2024-11-12] MEDS ORDERED: LIDOCAINE 2% 100MG/5ML SDV (FOR ANES.) As Ordered ONE (09:56)
[2024-11-12] MEDS ORDERED: propofoL 200 MG/20 ML VIAL As Ordered ONE (09:56)
[2024-11-12] MEDS ORDERED: fentaNYL 100 MCG/2 ML INJECTION As Ordered ONE (09:56)
[2024-11-12] MEDS ORDERED: dexmedeTOMIDine (4MCG/ML)200MCG/50ML BTL (PRECEDEX) As Ordered ONE (10:13)
[2024-11-12 10:49] VITALS: TEMP 97.9
[2024-11-12 11:05] VITALS: BP 142/69; O2SAT 94
== END 2024-11-12 11:12 | disposition home or self-care (01) ==
LOC: M OPP 08:35
PROVIDERS: ATTEND Surgery
DX: D12.7 Benign neoplasm of rectosigmoid junction (principal); K64.0 First degree hemorrhoids; D50.9 Iron deficiency anemia, unspecified; Z79.01 Long term (current) use of anticoagulants; G47.30 Sleep apnea, unspecified; Z91.048 Other nonmedicinal substance allergy status; Z79.82 Long term (current) use of aspirin; Z79.899 Other long term (current) drug therapy
CPT/HCPCS: 45385; 88305; J3010

== ENCOUNTER 2024-12-09 18:27 | Emergency (ER) | payer OTHER ==
[~2024-12-09] VITALS: Ht 182.9 cm; Wt 151.1 kg
[2024-12-09 18:31] VITALS: TEMP 96.8
[2024-12-10 01:00] VITALS: BP 195/89
[2024-12-10 02:15] VITALS: O2SAT 95
[2024-12-10 02:22] LABS: BASO % 0.5 % (0.0-1.0); EOS # 0.3 10^3/uL (0.0-0.5); EOS % 4.4 % (0.0-3.0); HEMATOCRIT 39.4 % (42.0-52.0); HEMOGLOBIN 12.6 g/dl (13.5-17.5); LYMPH # 1.5 10^3/uL (1.5-5.0); LYMPH % 19.1 % (24.0-44.0); MEAN CORPUSCULAR HEMOGLOBIN 28.4 pg (27.0-33.0); MEAN CORPUSCULAR VOLUME 88.9 fl (80.0-96.0); MONO # 0.7 10^3/uL (0.0-0.8); MONO % 8.4 % (2.0-8.0); NEUTROPHILS # 5.2 10^3/uL (1.5-8.5); NEUTROPHILS % 67.3 % (36.0-66.0); PLATELET COUNT, AUTOMATED 264 10^3/uL (150-450); RED BLOOD COUNT 4.43 10^6/uL (4.30-6.10); WHITE BLOOD COUNT 7.7 10^3/uL (4.0-10.0)
[2024-12-10 02:29] LABS: ERYTHROCYTE SEDIMENTATION RATE 46 mm/hr (0-20)
[2024-12-10 02:55] LABS: C REACTIVE PROTEIN QUANTITATIV 2.85 MG/DL (<1.0); CALCIUM LEVEL 8.6 MG/DL (8.3-10.6); CREATININE FOR GFR 1.24 MG/DL (0.70-1.30); GLOMERULAR FILTRATION RATE 64.5 (>49); POTASSIUM SERUM 4.1 MMOL/L (3.5-5.1)
[2024-12-10 02:57] LABS: URIC ACID 7.7 MG/DL (3.7-9.2)
== END 2024-12-10 02:39 | disposition home or self-care (01) ==
LOC: M ED 18:27
DX: M25.471 Effusion, right ankle (principal); M25.571 Pain in right ankle and joints of right foot; I25.10 Atherosclerotic heart disease of native coronary artery without angina pectoris; I11.0 Hypertensive heart disease with heart failure; I72.2 Aneurysm of renal artery; I89.0 Lymphedema, not elsewhere classified; J30.89 Other allergic rhinitis; Z86.711 Personal history of pulmonary embolism; Z79.01 Long term (current) use of anticoagulants; Z79.82 Long term (current) use of aspirin; Z79.899 Other long term (current) drug therapy

== ENCOUNTER → 2024-12-13 | Outpatient (REF) | payer OTHER | LOC: M SFHCPLAZ 17:54 | PROVIDERS: ATTEND Student in an Organized Health Care Education/Training Program | DX: Z53.9 Procedure and treatment not carried out, unspecified reason (principal) ==

== ENCOUNTER → 2024-12-14 | Outpatient (CLI) | payer MEDICARE, OTHER ==
[2024-12-14 09:29] LABS: ERYTHROCYTE SEDIMENTATION RATE 39 mm/hr (0-20)
[2024-12-14 09:56] LABS: HEMOGLOBIN A1c 5.1 % (4.0-6.0)
[2024-12-14 09:59] LABS: C REACTIVE PROTEIN QUANTITATIV 0.96 MG/DL (<1.0); CHOLESTEROL RISK RATIO 3.74 (<5); HDL CHOLESTEROL 38.2 MG/DL (>40); NON-HDL-C 104.8 MG/DL; PERCENT SATURATION 22.1 % (19.7-50.0)
[2024-12-14 10:01] LABS: FOLATE 7.4 NG/ML (>5.4)
[2024-12-14 10:02] LABS: FERRITIN 117.6 NG/ML (10.5-307.3)
== END ==
LOC: M PLALAB 08:19 → M LAB 08:19
DX: I10 Essential (primary) hypertension (principal); D50.9 Iron deficiency anemia, unspecified

== ENCOUNTER → 2024-12-21 | Outpatient (CLI) | payer OTHER | LOC: M RAD 09:24 | PROVIDERS: ATTEND Physician Assistant | DX: I70.1 Atherosclerosis of renal artery (principal) ==

== ENCOUNTER → 2025-04-07 | Outpatient (CLI) | payer OTHER ==
[~2025-04-07] MED LIST changes: +HYDR12.510 PO; -HYDR12CA PO
== END ==
LOC: M PLAIMG 07:35
PROVIDERS: ATTEND Podiatrist
DX: M79.671 Pain in right foot (principal)

== ENCOUNTER → 2025-05-04 | Outpatient (REF) | payer OTHER | LOC: M SFHCPLAZ 21:29 | PROVIDERS: ATTEND Family Medicine | DX: Z53.9 Procedure and treatment not carried out, unspecified reason (principal) ==

== ENCOUNTER → 2025-06-02 | Outpatient (CLI) | payer OTHER ==
[2025-06-02 13:03] LABS: ALT/SGPT 22.0 U/L (7.0-40); AST/SGOT 18.0 U/L (<34); CALCIUM LEVEL 8.7 MG/DL (8.3-10.6); CARBON DIOXIDE LEVEL 29.0 MMOL/L (20-31); CHLORIDE LEVEL 102.0 MMOL/L (98-107); CREATININE FOR GFR 1.68 MG/DL (0.70-1.30); GLOMERULAR FILTRATION RATE 44.8 (>49); INR 1.14; POTASSIUM SERUM 4.6 MMOL/L (3.5-5.1); SODIUM LEVEL 142.0 MMOL/L (136-145)
[2025-06-02 13:04] LABS: BASO # 0.0 10^3/uL (0.0-0.2); BASO % 0.4 % (0.0-1.0); EOS # 0.3 10^3/uL (0.0-0.5); EOS % 3.6 % (0.0-3.0); LYMPH # 1.3 10^3/uL (1.5-5.0); LYMPH % 17.3 % (24.0-44.0); MONO # 0.7 10^3/uL (0.0-0.8); MONO % 9.0 % (2.0-8.0); NEUTROPHILS # 5.0 10^3/uL (1.5-8.5); NEUTROPHILS % 69.3 % (36.0-66.0); PLATELET COUNT, AUTOMATED 275 10^3/uL (150-450)
[2025-06-02 13:42] LABS: ESTIMATED AVERAGE GLUCOSE 100.0 MG/DL (60-110)
== END ==
LOC: M PLALAB 10:20
PROVIDERS: ATTEND Family Medicine
DX: G47.33 Obstructive sleep apnea (adult) (pediatric) (principal); E66.01 Morbid (severe) obesity due to excess calories; Z86.711 Personal history of pulmonary embolism; R60.0 Localized edema; Z68.41 Body mass index [BMI] 40.0-44.9, adult; I10 Essential (primary) hypertension; M14.671 Charcot's joint, right ankle and foot; I50.9 Heart failure, unspecified; Z79.899 Other long term (current) drug therapy